=== PATIENT | female | born 1945 | race Caucasian/White ===

== ENCOUNTER 2016-09-12 00:27 | Emergency (ER) | payer MEDICARE, OTHER ==
[~2016-09-12] VITALS: Ht 149.9 cm; Wt 125.2 kg
--- NOTE | 2016-09-12 00:50 | NUR ---
TO BED 05 A 71 YO FEMALE BIBSELF AND REPORTED "MY 2 DAYS AGO AND I FEEL ANXIOUS AND MY WHOLE BODY HURTS." VSS. NO S/S OF ACUTE DISTRESS. AMBULATORY. NONDIAPHORETIC. GOWNED. INITIATED COMFORT MEASURES. AWAITING FOR ER MD CARTAGENA.
[2016-09-12] MEDS ORDERED: ACETAMINOPHEN ES 500 MG TABLET PO ONE (02:00)
--- NOTE | 2016-09-12 02:10 | NUR ---
STARTED A SALINE LOCK ON THE LEFT WRIST G20, BLOOD DRAWN AND SENT TO LAB.
[2016-09-12] MEDS ORDERED: ACETAMINOPHEN ES 500 MG TABLET ONE ×2 (02:12→05:49)
[2016-09-12 02:20] LABS: BASOPHILS # (AUTO) 0.1 /CMM (0.0-0.2); BASOPHILS % (AUTO) 0.9 % (0.0-2.0); EOSINOPHILS # (AUTO) 0.3 /CMM (0.0-0.7); EOSINOPHILS % (AUTO) 2.6 % (0.0-6.0); HEMATOCRIT 41 % (33-45); HEMOGLOBIN 13.6 g/dL (11.5-14.8); LYMPHOCYTES % (AUTO) 35.1 % (20.0-44.0); MEAN CORPUSCULAR HEMOGLOBIN 28 PG (26.0-33.0); MEAN CORPUSCULAR HGB CONC 33 g/dl (31.0-36.0); MEAN CORPUSCULAR VOLUME 83 fL (82-100); MONOCYTES # (AUTO) 0.9 /CMM (0.1-1.30); MONOCYTES % (AUTO) 8.3 % (2.0-12.0); NEUTROPHILS % (AUTO) 53.1 % (43.0-81.0); PLATELET COUNT (AUTO) 195 /CMM (150-450); RDW COEFFICIENT OF VARIATION 15.1 (11.5-15.0); RED BLOOD CELL COUNT(AUTO) 4.93 MIL/uL (4.0-5.2); WHITE BLOOD COUNT (AUTO) 11.3 K/uL (4.3-11.0)
[2016-09-12] MEDS ORDERED: CEFTRIAXONE 1GM BAG (ER ONLY) 1 GM/50 ML PIGGYBACK IV ONE (02:30)
[2016-09-12 02:31] LABS: CARBON DIOXIDE 28 mmol/L (21-32); CHLORIDE 105 mmol/L (98-107); CREATININE 0.9 mg/dL (0.6-1.3); GLUCOSE 127 mg/dL (74-106); POTASSIUM 3.6 mmol/L (3.5-5.1); SODIUM SERUM 141 mmol/L (136-145); UREA NITROGEN, BLOOD 18 mg/dL (7-18)
[2016-09-12 02:34] LABS: INR 0.94 (0.87-1.13)
[2016-09-12 02:37] LABS: ALANINE AMINOTRANSFERASE 21 U/L (12-78); ALBUMIN 3.3 g/dL (3.4-5.0); ALKALINE PHOSPHATASE 90 U/L (46-116); ASPARTATE AMINOTRANSFERASE 10 U/L (15-37); BILIRUBIN,DIRECT 0.1 mg/dL (0.0-0.2); BILIRUBIN,TOTAL 0.4 mg/dL (0.2-1.0)
[2016-09-12 02:39] LABS: TROPONIN I < 0.017 ng/mL (0.00-0.056)
[2016-09-12] MEDS ORDERED: ONDANSETRON HCL/PF 4 MG/2 ML VIAL ONE (03:00)
[2016-09-12] MEDS ORDERED: HYDROMORPHONE 1 MG/1 ML DISP.SYRIN IV ONE (03:00)
[2016-09-12] MEDS ORDERED: HYDROMORPHONE 1 MG/1 ML DISP.SYRIN ONE (03:00)
[2016-09-12] MEDS ORDERED: IV NS 0.9% 250 ML BAG IV ONE (03:00)
[2016-09-12] MEDS ORDERED: IV SET PRIMARY PUMP SET 1 EA INFUS.SET MC ONE (03:00)
[2016-09-12] MEDS ORDERED: CEFTRIAXONE 1GM BAG (ER ONLY) 50 ML IV ONE (03:00)
[2016-09-12] MEDS ORDERED: ONDANSETRON HCL/PF - ER 4 MG/2 ML VIAL IV ONE (03:00)
[2016-09-12] MEDS ORDERED: IV NS 0.9% 250 ML IV ONE (03:01)
[2016-09-12 03:08] LABS: APPEARANCE,URINE CLEAR (CLEAR); BILIRUBIN,URINE NEGATIVE (NEGATIVE); BLOOD, URINE NEGATIVE Ery/uL (NEGATIVE); COLOR,URINE YELLOW (YELLOW); KETONES,URINE NEGATIVE (NEGATIVE); LEUKOCYTE ESTERASE ,URINE NEGATIVE (NEGATIVE); NITRITE, URINE NEGATIVE (NEGATIVE); PH,URINE 5.5 (5.0-8.0); PROTEIN,URINE NEGATIVE (NEGATIVE); UGLUCOSE NEGATIVE (NEGATIVE); UROBILINOGEN,URINE 0.2 EU/dL (0.2)
--- NOTE | 2016-09-12 04:58 | NUR ---
JOHNATHON IS SLEEPING COMFORTABLY AT THIS TIME. VSS.
[2016-09-12] MEDS ORDERED: ACETAMINOPHEN 325 MG TABLET PO ONE (06:00)
--- NOTE | 2016-09-12 06:07 | NUR ---
IIV removed. Catheter intact and site benign. Pressure and 4x4 applied to site. No bleeding noted. Patient discharged to home in stable condition. Written and verbal after care instructions given. Patient verbalizes understanding of instruction. Patient wheeled to waiting area, waiting for grandson to apple picking supervisor. No further complaints.
[2016-09-12 06:08] VITALS: BP 111/64
== END 2016-09-12 06:22 | disposition home or self-care (01) ==
LOC: ER 00:32
DX: N39.0 Urinary tract infection, site not specified (principal); M79.1 Myalgia; F43.20 Adjustment disorder, unspecified; R33.9 Retention of urine, unspecified; R06.02 Shortness of breath; R07.9 Chest pain, unspecified; I25.2 Old myocardial infarction; Z88.0 Allergy status to penicillin; Z88.1 Allergy status to other antibiotic agents; Z88.6 Allergy status to analgesic agent; Z98.51 Tubal ligation status
CPT/HCPCS: 36415; 51701; 71010; 80048; 80076; 81001; 84484; 85025; 85730; 87086; 93005; 96365; 96375; 99285; A4606; J0696; J1170; J2405; J7050; 81000-TC; Z7610

== ENCOUNTER 2021-04-01 12:50 | Inpatient (IN) | payer MEDICARE, OTHER ==
[~2021-04-01] VITALS: Ht 144.8 cm; Wt 117.5 kg
--- NOTE | 2021-04-01 13:06 | NUR ---
BIB RA 99 FROM HOME,ON & OFF CP X 2 DAYS, MORE SEVERE UPON WAKING UP THIS MORNING 10/01, NTG X 1 AND ASA 324 MG GIVEN WITH PARTIAL RELIEF. THE PATIENT IS ALERT AND ORIENTED X4. IN ROOM AIR AND DENIES SOB. RESPIRATION REGULAR AND UNLABORED. ATTACHED TO THE MONITOR. WARM BLANKET PROVIDED FOR COMFORT. WILL CONTINUE TO MONITOR THE PATIENT.
[2021-04-01] MEDS ORDERED: FAMO-131 PO (14:39)
[2021-04-01] MEDS ORDERED: METO25TA6 PO (14:39)
[2021-04-01] MEDS ORDERED: DIAZ5TAB PO (14:39)
[2021-04-01] MEDS ORDERED: TOPI25TA PO (14:39)
[2021-04-01] MEDS ORDERED: TEMA15CA5 PO (14:39)
[2021-04-01] MEDS ORDERED: OMEP20TA5 PO (14:39)
[2021-04-01 14:47] LABS: BASOPHILS # (AUTO) 0.1 K/uL (0.0-0.2); BASOPHILS % (AUTO) 0.5 % (0.0-2.0); EOSINOPHILS % (AUTO) 1.7 % (0.0-6.0); HEMATOCRIT 41 % (33-45); HEMOGLOBIN 13.3 g/dL (11.5-14.8); LYMPHOCYTES # (AUTO) 2.6 K/uL (0.8-4.8); LYMPHOCYTES % (AUTO) 24.2 % (20.0-44.0); MEAN CORPUSCULAR HGB CONC 33 g/dl (31.0-36.0); MEAN CORPUSCULAR VOLUME 86 fL (82-100); MONOCYTES # (AUTO) 0.7 K/uL (0.1-1.30); MONOCYTES % (AUTO) 6.9 % (2.0-12.0); NEUTROPHILS # (AUTO) 7.2 K/uL (1.8-8.9); NEUTROPHILS % (AUTO) 66.7 % (43.0-81.0); PLATELET COUNT (AUTO) 208 K/uL (150-450); RED BLOOD CELL COUNT(AUTO) 4.72 MIL/uL (4.0-5.2); WHITE BLOOD COUNT (AUTO) 10.8 K/uL (4.3-11.0)
--- NOTE | 2021-04-01 14:53 | NUR ---
COVID ANTIGEN SWAB DONE AND SENT TO THE LAB
[2021-04-01 15:09] LABS: CALCIUM, SERUM 9.2 mg/dL (8.5-10.1); CARBON DIOXIDE 27 mmol/L (21-32); CHLORIDE 107 mmol/L (98-107); CREATININE 0.7 mg/dL (0.6-1.3); GLUCOSE 140 mg/dL (74-106); POTASSIUM 3.6 mmol/L (3.5-5.1); SODIUM SERUM 140 mmol/L (136-145); UREA NITROGEN, BLOOD 18 mg/dL (7-18)
[2021-04-01] MEDS ORDERED: AZITHROMYCIN 250 MG TABLET PO ONE (17:00)
[2021-04-01] MEDS ORDERED: AZITHROMYCIN 250 MG TABLET ONE (17:02)
--- NOTE | 2021-04-01 18:28 | NUR ---
ROOM 204
[2021-04-01] MEDS ORDERED: MAGNESIUM HYDROXIDE 30 ML UDC PO PRN (18:30)
[2021-04-01] MEDS ORDERED: MAG HYDROX/AL HYDROX/SIMETH 30 ML UDC PO PRN (18:30)
[2021-04-01] MEDS ORDERED: ONDANSETRON HCL/PF 4 MG/2 ML VIAL IVP PRN (18:30)
[2021-04-01] MEDS ORDERED: Z GUARD REMEDY 4 OZ OINT TP PRN (18:30)
[2021-04-01] MEDS ORDERED: ZOLPIDEM TARTRATE 5 MG TABLET PO PRN (18:30)
[2021-04-01] MEDS ORDERED: AZITHROMYCIN 500 MG in IV D5W 250 ML IV SCH (18:30)
[2021-04-01] MEDS ORDERED: ENOXAPARIN SODIUM 40 MG/0.4 ML DISP.SYRIN SQ ONE (19:09)
[2021-04-01] MEDS: ENOXAPARIN SODIUM 40 MG/0.4 ML DISP.SYRIN SQ SCH (19:12)
--- NOTE | 2021-04-01 19:23 | NUR ---
REPORT GIVEN TO NURSE VAUGHN FOR AWA
--- NOTE | 2021-04-01 20:17 | NUR ---
REPORT GIVEN TO ZA HITCHCOCK
[2021-04-01 22:00] VITALS: BP 135/86
--- NOTE | 2021-04-01 22:08 | NUR ---
PT TRANSFERED PER ACLS PROTOCOL
--- NOTE | 2021-04-01 22:09 | NUR ---
NM: LUNG V/Q WAS COMPLETED. TECH:RB
--- NOTE | 2021-04-01 23:10 | NUR ---
RN NOTES RECEIVED PATIENT FROM ER WITH DX. OF CHEST PAIN, A/OX4, OBESE, A-FIB ON TELE MONITOR HR-93, ADMISSION INSTRUCTION WAS GIVEN, SKIN ASSESSMENT DONE, CALL LIGHT WITHIN REACH, [id number], WILL CONTINUE TO MONITOR
--- NOTE | 2021-04-01 23:20 | NUR ---
RN NOTES PATIENT COMPLAINED OF TERRIBLE HEADACHE, GOT AN ORDER FROM ELAINE DINH=-ILLUMINATOR, MORPHINE 2 MG IV ONCE, ORDER NOTED AND CARRIED OUT
[2021-04-01] MEDS ORDERED: MORPHINE SULFATE INJ 2 MG/ML DISP.SYRIN IV PRN (23:30)
--- NOTE | 2021-04-02 01:26 | NUR ---
RN NOTES PATIENT IS A HARDSTICK, GOT AN ORDER OF MIDLINE INSERTION FROM ELAINE SNOW, ORDER NOTED AND CARRIED OUT
[2021-04-02 04:00] VITALS: BP 125/71
--- NOTE | 2021-04-02 06:49 | NUR ---
RN NOTES SLEEPING BUT AROUSABLE, NOT IN DISTRESS, NO PAIN NOTED, MORNING CARE RENDERED, CALL LIGHT WITHIN REACH, [id number], PT. NEEDS ATTENDED
--- NOTE | 2021-04-02 07:26 | NUR ---
RN OPENING NOTES RECEIVED PATIENT IN BED. PATIENT IS A/O X4. PATIENT IS BREATHING EVENLY AND NONLABORED ON ROOM AIR. NO SIGNS OF DISTRESS NOTED. PATIENT COMPLAINS OF HEADACHE WILL GIVE PRN PAIN MEDICATION, VITALS STABLE. PATIENT IS ON TELE MONITORING SHOWING AFIB. PATIENT HAS IV ACCESS NOTED ON LEFT HAND # 20 PATENT AND INTACT. SAFETY MEASURES IN PLACE BED LOW LOCKED AND CALL LIGHT WITHIN REACH. WILL CONTINUE TO MONITOR
[2021-04-02] MEDS ORDERED: PANTOPRAZOLE 40 MG TABLET.DR PO SCH (07:30)
[2021-04-02] MEDS: ACETAMINOPHEN 325 MG TABLET PO PRN (07:37)
[2021-04-02 07:50] VITALS: BP 136/87
[2021-04-02 08:19] LABS: BASOPHILS % (AUTO) 0.5 % (0.0-2.0); EOSINOPHILS % (AUTO) 2.1 % (0.0-6.0); HEMATOCRIT 39 % (33-45); HEMOGLOBIN 12.6 g/dL (11.5-14.8); LYMPHOCYTES # (AUTO) 2.9 K/uL (0.8-4.8); LYMPHOCYTES % (AUTO) 38.2 % (20.0-44.0); MEAN CORPUSCULAR HGB CONC 33 g/dl (31.0-36.0); MEAN CORPUSCULAR VOLUME 86 fL (82-100); MONOCYTES # (AUTO) 0.7 K/uL (0.1-1.30); MONOCYTES % (AUTO) 8.8 % (2.0-12.0); NEUTROPHILS # (AUTO) 3.9 K/uL (1.8-8.9); NEUTROPHILS % (AUTO) 50.4 % (43.0-81.0); PLATELET COUNT (AUTO) 199 K/uL (150-450); RED BLOOD CELL COUNT(AUTO) 4.49 MIL/uL (4.0-5.2); WHITE BLOOD COUNT (AUTO) 7.7 K/uL (4.3-11.0)
[2021-04-02 08:23] LABS: CALCIUM, SERUM 8.7 mg/dL (8.5-10.1); CREATININE 0.6 mg/dL (0.6-1.3); MAGNESIUM 2.2 mg/dL (1.8-2.4); PHOSPHORUS 4.2 mg/dL (2.5-4.9)
[2021-04-02 08:59] LABS: THYROID STIMULATING HORMONE 1.542 uIU/mL (0.358-3.74)
[2021-04-02] MEDS: HYDROCODONE/APAP 10/325MG TABLET PO PRN ×3 (11:08→20:59)
[2021-04-02] MEDS ORDERED: HYDROCODONE/APAP 5/325MG TABLET PO PRN (11:30)
[2021-04-02] MEDS: LEVOFLOXACIN 500 MG /D5W 100ML 100 ML IV SCH (11:53)
--- NOTE | 2021-04-02 12:12 | NUR ---
RN NOTE MIDLINE INSERTION ON LEFT UPPER ARM # 18 GAUGE PATENT AND INTACT.
[2021-04-02 13:17] VITALS: BP 112/76
[2021-04-02] MEDS: PANTOPRAZOLE 40 MG TABLET.DR PO SCH ×2 (14:42→20:59)
--- NOTE | 2021-04-02 14:45 | NUR ---
RN NOTE PATIENT COMPLAINED OF CHEST PAIN NONRADIATING. MD NOTIFIED WHO GAVE NEW ORDER FOR PROTONIX Q12HRS AND TO MONITOR.
[2021-04-02 15:44] VITALS: BP 123/84
[2021-04-02] MEDS ORDERED: diphenhydrAMINE HCL 50 MG/ML VIAL IV ONE (17:00)
[2021-04-02] MEDS ORDERED: TOPIRAMATE 25 MG TABLET PO SCH (17:00)
[2021-04-02] MEDS: DIAZEPAM 5 MG TABLET PO SCH (17:53)
[2021-04-02] MEDS: METOPROLOL TARTRATE 25 MG TABLET PO SCH (17:53)
[2021-04-02] MEDS: ENOXAPARIN SODIUM 40 MG/0.4 ML DISP.SYRIN SQ SCH ×2 (17:53→17:56)
--- NOTE | 2021-04-02 18:29 | NUR ---
RN CLOSING NOTES PATIENT IN BED. PATIENT IS A/O X4. PATIENT IS BREATHING EVENLY AND NONLABORED ON ROOM AIR. NO SIGNS OF DISTRESS NOTED. PATIENT DENIES PAIN OR DISCOMFORT AT THIS TIME, VITALS STABLE THROUGHOUT SHIFT. PATIENT IS ON TELE MONITORING SHOWING AFIB. PATIENT HAS IV ACCESS NOTED ON LEFT HAND # 20 PATENT AND INTACT. ALL MEDICATIONS GIVEN ORDERED. PATIENT KEPT CLEAN AND DRY. SAFETY MEASURES IN PLACE BED LOW LOCKED AND CALL LIGHT WITHIN REACH. WILL ENDORSE TO ONCOMING SHIFT
--- NOTE | 2021-04-02 19:36 | NUR ---
BLOCK MACHINE OPERATOR OPENING NOTE PATIENT RESTING IN BED. PATIENT IS A/O X4. PATIENT IS BREATHING EVENLY LABORED WITH SOB NOTED ON 10 LPM VIA SIMPLE FACEMASK. NO COMPLAINTS OF PAIN AT THIS TIME. PATIENT PLACED ON TELE MONITORING SHOWING SINUS TACHYCARDIA. FC IN PLACE DRAINING CLEAR YELLOW URINE ABDOMEN SOFT NONTENDER. SKIN C/D/I, PATIENT NOTED WITH IV ACCESS TO LAC # 18 GAUGE PATENT AND INTACT. SAFETY MEASURES IN PLACE BED LOW LOCKED AND CALL LIGHT WITHIN REACH. WILL ENDORSE TO DAY SHIFT NURSE.
[2021-04-02 20:00] VITALS: BP 103/73
--- NOTE | 2021-04-02 21:04 | NUR ---
INSTRUMENT SPECIALIST NOTES PRN NORCO 10-325 GIVEN FOR GENERALIZED PAIN. TOLERATED WELL. WILL CONTINUE TO MONITOR.
[2021-04-02] MEDS ORDERED: TEMAZEPAM 15 MG CAPSULE PO SCH (22:00)
[2021-04-03] VITALS: BP 111/68
[2021-04-03 04:00] VITALS: BP 112/59
[2021-04-03] MEDS: HYDROCODONE/APAP 10/325MG TABLET PO PRN ×3 (04:49→20:01)
--- NOTE | 2021-04-03 04:52 | NUR ---
SALES AGENT BUSINESS SERVICES NOTES PT HAVING PAIN PRN NORCO 10-325 GIVEN AND TOLERATED WELL.
--- NOTE | 2021-04-03 06:55 | NUR ---
LATHE SET UP PERSON CLOSING NOTE PATIENT RESTING IN BED. PATIENT IS A/O X4. PATIENT IS BREATHING EVENLY LABORED WITH SOB NOTED ON 10 LPM VIA SIMPLE FACEMASK. NO COMPLAINTS OF PAIN AT THIS TIME. PATIENT PLACED ON TELE MONITORING SHOWING SINUS TACHYCARDIA. FC IN PLACE DRAINING CLEAR YELLOW URINE ABDOMEN SOFT NONTENDER. SKIN C/D/I, PATIENT NOTED WITH IV ACCESS TO LAC # 18 GAUGE PATENT AND INTACT. SAFETY MEASURES IN PLACE BED LOW LOCKED AND CALL LIGHT WITHIN REACH. WILL ENDORSE TO DAY SHIFT NURSE.
[2021-04-03 07:04] LABS: BASOPHILS % (AUTO) 0.5 % (0.0-2.0); HEMATOCRIT 38 % (33-45); HEMOGLOBIN 12.3 g/dL (11.5-14.8); LYMPHOCYTES # (AUTO) 3.2 K/uL (0.8-4.8); LYMPHOCYTES % (AUTO) 47.5 % (20.0-44.0); MEAN CORPUSCULAR HGB CONC 32 g/dl (31.0-36.0); MEAN CORPUSCULAR VOLUME 87 fL (82-100); MONOCYTES # (AUTO) 0.7 K/uL (0.1-1.30); MONOCYTES % (AUTO) 10.8 % (2.0-12.0); NEUTROPHILS # (AUTO) 2.6 K/uL (1.8-8.9); NEUTROPHILS % (AUTO) 38.2 % (43.0-81.0); PLATELET COUNT (AUTO) 180 K/uL (150-450); RED BLOOD CELL COUNT(AUTO) 4.38 MIL/uL (4.0-5.2); WHITE BLOOD COUNT (AUTO) 6.7 K/uL (4.3-11.0)
--- NOTE | 2021-04-03 07:23 | NUR ---
RN OPENING NOTES RECEIVED PATIENT IN BED. PATIENT IS A/O X4. PATIENT IS BREATHING EVENLY AND NONLABORED ON ROOM AIR. NO SIGNS OF DISTRESS NOTED. PATIENT DENIES PAIN OR DISCOMFORT AT THIS TIME. PATIENT IS ON TELE MONITORING SHOWING AFIB. PATIENT HAS IV ACCESS NOTED ON LEFT UPPER ARM MIDLINE # 18 PATENT AND INTACT. SAFETY MEASURES IN PLACE BED LOW LOCKED AND CALL LIGHT WITHIN REACH. WILL CONTINUE TO MONITOR
[2021-04-03 08:00] VITALS: BP 107/59
[2021-04-03 08:02] LABS: CALCIUM, SERUM 8.4 mg/dL (8.5-10.1); CREATININE 0.7 mg/dL (0.6-1.3); MAGNESIUM 2.2 mg/dL (1.8-2.4); PHOSPHORUS 4.8 mg/dL (2.5-4.9); POTASSIUM 4.3 mmol/L (3.5-5.1)
[2021-04-03] MEDS: METOPROLOL TARTRATE 25 MG TABLET PO SCH ×2 (08:10→16:10)
[2021-04-03] MEDS: DIAZEPAM 5 MG TABLET PO SCH ×3 (08:10→16:10)
[2021-04-03] MEDS: PANTOPRAZOLE 40 MG TABLET.DR PO SCH ×2 (08:10→20:34)
[2021-04-03] MEDS ORDERED: diphenhydrAMINE HCL 50 MG/ML VIAL IV ONE (09:00)
--- NOTE | 2021-04-03 09:30 | NUR ---
WOUND CARE CONSULT: REVIEWED CHART, NURSING DOCUMENTATION AND PHOTO WHICH INDICATES REDNESS/RASH TO INNER BUTTOCKS, PRESENT ON ADMISSION. RECOMMENDATIONS MADE FOR SKIN CARE AND PROTECTION. DISCUSSED WITH NURSING STAFF. MDIN AGREEMENT WITH PLAN OF CARE.
--- NOTE | 2021-04-03 10:11 | NUR ---
RN NOTE PATIENT NOTED WITH GENERALIZED REDNESS AND ITCHING. VITALS STABLE, PATIENT STATED IT MAY BE FROM THE SOAP, NOTIFIED GAVE NEW ORDER FOR BENADRYL 25MG Q6HRS PRN
[2021-04-03] MEDS ORDERED: IV NS 0.9% 250 ML IV ONE (10:41)
[2021-04-03] MEDS ORDERED: NITROGLYCERIN 0.4 MG/TAB BOTTLE ONE (10:41)
[2021-04-03] MEDS ORDERED: IOHEXOL-350 100 ML VIAL IV ONE (10:41)
[2021-04-03] MEDS ORDERED: CT SWABBABLE VALVE TRANS SET 1 EA INFUS.SET MC ONE (10:41)
[2021-04-03] MEDS ORDERED: METOPROLOL TARTRATE INJ 5 MG/5 ML AMPUL ONE (10:41)
[2021-04-03] MEDS: METOPROLOL TARTRATE INJ 5 MG/5 ML AMPUL IVP PRN ×2 (10:50→10:55)
[2021-04-03] MEDS ORDERED: NITROGLYCERIN 0.4 MG/TAB BOTTLE SL ONE (11:00)
[2021-04-03] MEDS: LEVOFLOXACIN 500 MG /D5W 100ML 100 ML IV SCH (11:19)
[2021-04-03] MEDS: CLOTRIMAZOLE 1% 15 GM TUBE TP SCH ×2 (11:20→16:10)
[2021-04-03 12:00] VITALS: BP 112/79
[2021-04-03 12:22] LABS: BILIRUBIN,URINE NEGATIVE (NEGATIVE); COLOR,URINE OTHER (YELLOW); LEUKOCYTE ESTERASE ,URINE LARGE (NEGATIVE); NITRITE, URINE NEGATIVE (NEGATIVE); PROTEIN,URINE NEGATIVE (NEGATIVE); UGLUCOSE NEGATIVE (NEGATIVE); UROBILINOGEN,URINE 0.2 EU/dL (0.2)
[2021-04-03 12:37] LABS: BACTERIA,URINE Moderate /HPF (None Seen); RBC,URINE 0-2 /HPF (0-2); SQUAMOUS EPITHELIAL CELL,UR Few /HPF (None Seen); WBC,URINE 81-100 /HPF (0-3)
[2021-04-03 16:00] VITALS: BP 95/52
[2021-04-03] MEDS: diphenhydrAMINE HCL 50 MG/ML VIAL IV PRN ×2 (16:10→21:58)
[2021-04-03] MEDS: ENOXAPARIN SODIUM 40 MG/0.4 ML DISP.SYRIN SQ SCH (17:51)
--- NOTE | 2021-04-03 18:18 | NUR ---
RN CLOSING NOTES PATIENT IN BED. PATIENT IS A/O X4. PATIENT IS BREATHING EVENLY AND NONLABORED ON ROOM AIR. NO SIGNS OF DISTRESS NOTED. PATIENT DENIES PAIN OR DISCOMFORT AT THIS TIME, VITALS STABLE THROUGHOUT SHIFT. PATIENT IS ON TELE MONITORING SHOWING AFIB. PATIENT HAS IV ACCESS NOTED ON LEFT UPPER ARM MIDLINE PATENT AND INTACT. ALL MEDICATIONS GIVEN ORDERED. PATIENT KEPT CLEAN AND DRY. SAFETY MEASURES IN PLACE BED LOW LOCKED AND CALL LIGHT WITHIN REACH. WILL ENDORSE TO ONCOMING SHIFT
--- NOTE | 2021-04-03 19:40 | NUR ---
company laundry worker opening notes Pt is sitting in bed comfortably eating dinner. Pt is alert and orientedX4. Respiration is normal in room air. No SOB. No S/S of distress noted. BRADLY midline # 18 is clean, intact and SL.Tele monitor showed afib. Safety precautions is maintained. Bed at low position, brakes locked, side rails upX3, hob elevated and call light is within reach. Will continue to monitor.
[2021-04-03 20:00] VITALS: BP 102/48
--- NOTE | 2021-04-03 20:01 | NUR ---
film casting operator notes Pt is complaining of generalized pain and requesting pain meds. administered norco 10 as ordered for pain. VS is stable. Safety precautions is maintained. Will continue to monitor.
--- NOTE | 2021-04-03 20:34 | NUR ---
RN notes Unable to scan protonix tab. inserted manual barcode.
--- NOTE | 2021-04-03 21:58 | NUR ---
RN notes Pt is complaining of itchyness and requesting benadryl. Pt stated " I think from protonix." Administered benadryl inj/25mg as ordered for itchyness. Also put protonix on Pt's allergy lists. Will continue to monitor.
[2021-04-04] VITALS: BP 100/65
--- NOTE | 2021-04-04 | NUR ---
RN notes Pt is sitting in bed comfortably eating snacks. No S/S of distress noted. Itchyness is resolved.
[2021-04-04 04:00] VITALS: BP 102/57
[2021-04-04] MEDS: HYDROCODONE/APAP 10/325MG TABLET PO PRN (05:45)
--- NOTE | 2021-04-04 06:30 | NUR ---
paper goods machine operator closing notes Pt is resting in bed comfortably. Pt is alert and orientedX4. Respiration is normal in room air. No SOB. No S/S of distress noted. BRADLY midline # 18 is clean, intact and SL. Tele monitor showed afib. Routine meds were given as ordered. Safety precautions is maintained. Bed at low position, brakes locked, side rails upX3, hob elevated and call light is within reach. Will endorse to am nurse for AWA.
[2021-04-04 07:47] LABS: BASOPHILS % (AUTO) 0.5 % (0.0-2.0); HEMATOCRIT 38 % (33-45); HEMOGLOBIN 12.4 g/dL (11.5-14.8); LYMPHOCYTES % (AUTO) 37.8 % (20.0-44.0); MEAN CORPUSCULAR HGB CONC 33 g/dl (31.0-36.0); MEAN CORPUSCULAR VOLUME 86 fL (82-100); MONOCYTES # (AUTO) 0.9 K/uL (0.1-1.30); MONOCYTES % (AUTO) 11.4 % (2.0-12.0); NEUTROPHILS # (AUTO) 3.6 K/uL (1.8-8.9); NEUTROPHILS % (AUTO) 46.3 % (43.0-81.0); PLATELET COUNT (AUTO) 189 K/uL (150-450); RED BLOOD CELL COUNT(AUTO) 4.38 MIL/uL (4.0-5.2); WHITE BLOOD COUNT (AUTO) 7.8 K/uL (4.3-11.0)
[2021-04-04 08:00] VITALS: BP 141/88
--- NOTE | 2021-04-04 08:06 | NUR ---
RN Note Patient received in bed AO x 4, able to responds all stimuli. No distress observed. Respiratory even and unlabored on room air. Skin is warm to touch, keep clean/dry. Call light within reach, kept elevated HOB for ensure airway and lower bed position for safety. Will continue to monitor.
[2021-04-04 08:52] LABS: CALCIUM, SERUM 8.2 mg/dL (8.5-10.1); CREATININE 0.9 mg/dL (0.6-1.3); PHOSPHORUS 5.1 mg/dL (2.5-4.9); POTASSIUM 4.3 mmol/L (3.5-5.1)
[2021-04-04] MEDS: CLOTRIMAZOLE 1% 15 GM TUBE TP SCH ×2 (09:00→17:25)
[2021-04-04] MEDS: METOPROLOL TARTRATE 25 MG TABLET PO SCH ×2 (09:00→17:00)
[2021-04-04 09:22] LABS: CHOLESTEROL 162 mg/dL (<200); HDL CHOLESTEROL 47 mg/dL (40-60); LDL 93 mg/dL (0-99); TRIGLYCERIDES 131 mg/dL (30-150)
[2021-04-04] MEDS: CIPROFLOXACIN IV RTU 400 MG in PREMIX 1 EA IV SCH ×2 (09:51→20:36)
[2021-04-04] MEDS: DIAZEPAM 5 MG TABLET PO SCH ×3 (09:53→17:16)
[2021-04-04] MEDS: diphenhydrAMINE HCL 50 MG/ML VIAL IV PRN (11:58)
[2021-04-04] MEDS: FAMOTIDINE (20 MG) 20 MG TABLET PO SCH (17:16)
[2021-04-04] MEDS: ENOXAPARIN SODIUM 40 MG/0.4 ML DISP.SYRIN SQ SCH (18:22)
--- NOTE | 2021-04-04 18:30 | NUR ---
RN Closing Note Patient in bed remains AO x 4. No distress observed, respiratory even and unlabored on room air. Skin is warm to touch, keep clean/dry. Kept elevated HOB for ensure airway and lower position of the bed for safety. Call light within reach, all needs met. will endorse power and recovery shift engineer.
[2021-04-04 22:00] VITALS: BP 95/54
[2021-04-05] VITALS: BP 100/67
[2021-04-05 04:00] VITALS: BP 104/60
--- NOTE | 2021-04-05 07:36 | NUR ---
DRIVER EDUCATION ROAD INSTRUCTOR OPENING NOTE RECEIVED PATIENT RESTING IN BED. PATIENT IS A/O X4 ON ROOM AIR . NO COMPLAINTS OF SOB. NO COMPLAINTS OF PAIN AT THIS TIME. IV ACCESS TO LAC # 18 GAUGE PATENT AND INTACT. SAFETY MEASURES IN PLACE BED LOW LOCKED AND CALL LIGHT WITHIN REACH
[2021-04-05] MEDS ORDERED: DOXY100T2 PO (09:00)
[2021-04-05] MEDS ORDERED: HYDR-3980 PO (09:00)
[2021-04-05] MEDS ORDERED: ENOX40DI SQ (09:00)
[2021-04-05] MEDS ORDERED: DOXYCYCLINE HYCLATE (100 MG) 100 MG TABLET PO SCH (09:00)
[2021-04-05] MEDS: FAMOTIDINE (20 MG) 20 MG TABLET PO SCH (09:25)
[2021-04-05] MEDS: METOPROLOL TARTRATE 25 MG TABLET PO SCH ×2 (09:26→16:22)
[2021-04-05] MEDS: DIAZEPAM 5 MG TABLET PO SCH ×3 (09:26→16:22)
[2021-04-05] MEDS: CLOTRIMAZOLE 1% 15 GM TUBE TP SCH ×2 (09:27→16:25)
[2021-04-05] MEDS: HYDROCODONE/APAP 10/325MG TABLET PO PRN (13:08)
[2021-04-05 16:00] VITALS: BP 129/73
[2021-04-05 16:22] VITALS: BP 129/73
[2021-04-05] MEDS: ACETAMINOPHEN 325 MG TABLET PO PRN (16:24)
--- NOTE | 2021-04-05 18:30 | NUR ---
RN NOTE PATIENT TAKEN BY 2 PUPIL PERSONNEL WORKER IN STABLE CONDITION
== END 2021-04-05 22:29 | disposition home or self-care (01) | DRG 303 ==
LOC: ER 12:52 → TELE2 18:55
PROVIDERS: ADMIT Student in an Organized Health Care Education/Training Program; ATTEND Internal Medicine
DX: I25.110 Atherosclerotic heart disease of native coronary artery with unstable angina pectoris (principal); N39.0 Urinary tract infection, site not specified; Z68.43 Body mass index [BMI] 50.0-59.9, adult; I10 Essential (primary) hypertension; I48.91 Unspecified atrial fibrillation; Z20.822 Contact with and (suspected) exposure to COVID-19; I25.2 Old myocardial infarction; M19.90 Unspecified osteoarthritis, unspecified site; M85.80 Other specified disorders of bone density and structure, unspecified site; Z86.16 Personal history of COVID-19; Z87.891 Personal history of nicotine dependence; G62.9 Polyneuropathy, unspecified; Z87.440 Personal history of urinary (tract) infections; B96.20 Unspecified Escherichia coli [E. coli] as the cause of diseases classified elsewhere; R53.1 Weakness
CPT/HCPCS: 36415; 70450-TC; 71045-TC; 75574; 78582; 80048-TC; 80061-TC; 81001; 83605-TC; 83735-TC; 83880; 84100-TC; 84443-TC; 84484-TC; 85025-TC; 85378-TC; 87040-TC; 87081-TC; 87086-TC; 87186-TC; 93307-TC; 93970-TC; A4216; A9540; A9567; C9803; G0378; J0456; J0744; J1200; J1650; J1956; J2270; J3490; J7050; J7060; Q9967; U0003

== ENCOUNTER 2021-05-04 01:15 | Inpatient (IN) | payer MEDICARE, MEDICAID ==
[~2021-05-04] VITALS: Ht 149.9 cm; Wt 117.9 kg
[~2021-05-04 01:15] MED LIST: DIAZ5TAB PO; FAMO-131 PO; METO25TA6 PO; OMEP20TA5 PO; TEMA15CA5 PO; TOPI25TA PO
[2021-05-04 01:58] LABS: BASOPHILS % (AUTO) 0.6 % (0.0-2.0); EOSINOPHILS % (AUTO) 2.5 % (0.0-6.0); HEMATOCRIT 40 % (33-45); HEMOGLOBIN 12.9 g/dL (11.5-14.8); LYMPHOCYTES # (AUTO) 2.7 K/uL (0.8-4.8); LYMPHOCYTES % (AUTO) 33.1 % (20.0-44.0); MEAN CORPUSCULAR HGB CONC 33 g/dl (31.0-36.0); MEAN CORPUSCULAR VOLUME 85 fL (82-100); MONOCYTES # (AUTO) 0.8 K/uL (0.1-1.30); MONOCYTES % (AUTO) 9.8 % (2.0-12.0); NEUTROPHILS # (AUTO) 4.4 K/uL (1.8-8.9); PLATELET COUNT (AUTO) 198 K/uL (150-450); RED BLOOD CELL COUNT(AUTO) 4.65 MIL/uL (4.0-5.2); WHITE BLOOD COUNT (AUTO) 8.2 K/uL (4.3-11.0)
[2021-05-04] MEDS ORDERED: ONDANSETRON HCL/PF 4 MG/2 ML VIAL IV ONE (02:00)
[2021-05-04] MEDS ORDERED: MORPHINE SULFATE INJ 2 MG/ML DISP.SYRIN IV ONE (02:00)
[2021-05-04] MEDS ORDERED: ONDANSETRON HCL/PF 4 MG/2 ML VIAL ONE (02:09)
[2021-05-04] MEDS ORDERED: MORPHINE SULFATE INJ 2 MG/ML DISP.SYRIN ONE (02:10)
[2021-05-04 02:12] LABS: CARBON DIOXIDE 28 mmol/L (21-32); CHLORIDE 105 mmol/L (98-107); CREATININE 0.7 mg/dL (0.6-1.3); GLUCOSE 98 mg/dL (74-106); POTASSIUM 3.8 mmol/L (3.5-5.1); SODIUM SERUM 138 mmol/L (136-145); UREA NITROGEN, BLOOD 8 mg/dL (7-18)
[2021-05-04 02:26] LABS: ALANINE AMINOTRANSFERASE 9 U/L (12-78); ALBUMIN 3.1 g/dL (3.4-5.0); ALKALINE PHOSPHATASE 73 U/L (46-116); ASPARTATE AMINOTRANSFERASE 12 U/L (15-37); BILIRUBIN,DIRECT 0.1 mg/dL (0.0-0.2); BILIRUBIN,TOTAL 0.4 mg/dL (0.2-1.0); TOTAL PROTEIN, SERUM 7.1 g/dL (6.4-8.2)
[2021-05-04] MEDS ORDERED: ENOXAPARIN SODIUM 40 MG/0.4 ML DISP.SYRIN SQ SCH (04:00)
[2021-05-04] MEDS ORDERED: ONDANSETRON HCL/PF 4 MG/2 ML VIAL IVP PRN (04:00)
[2021-05-04] MEDS ORDERED: ENOXAPARIN SODIUM 40 MG/0.4 ML DISP.SYRIN SQ ONE ×2 (04:22→21:00)
[2021-05-04] MEDS ORDERED: Medication Not On Formulary EA (Omeprazole 20 MG) PO SCH (09:00)
[2021-05-04] MEDS ORDERED: TOPIRAMATE 25 MG TABLET PO SCH (09:00)
[2021-05-04] MEDS: DIAZEPAM 5 MG TABLET PO SCH ×3 (10:24→17:23)
[2021-05-04] MEDS: METOPROLOL TARTRATE 25 MG TABLET PO SCH ×2 (10:24→17:00)
[2021-05-04] MEDS: FAMOTIDINE (20 MG) 20 MG TABLET PO SCH (10:25)
[2021-05-04] MEDS: ACETAMINOPHEN 325 MG TABLET PO PRN (10:25)
[2021-05-04 11:00] VITALS: BP 119/61
[2021-05-04] MEDS ORDERED: IVERMECTIN 3 MG TABLET PO ONE (11:00)
[2021-05-04] MEDS ORDERED: PERMETHRIN 5% CRM 60 GM TUBE TP ONE (11:00)
[2021-05-04] MEDS: HYDROCODONE/APAP 5/325MG TABLET PO PRN ×2 (12:05→17:24)
[2021-05-04] MEDS: CEFTRIAXONE 1 G in IV D5W 50 ML IV SCH (12:11)
[2021-05-04 16:00] VITALS: BP 92/50
[2021-05-04 20:00] VITALS: BP_SYST 144; BP_SYST 94; BP_DIAS 53; BP_DIAS 68
[2021-05-04] MEDS: TEMAZEPAM 15 MG CAPSULE PO SCH (22:26)
[2021-05-05] VITALS: BP 106/63
[2021-05-05] MEDS: ACETAMINOPHEN 325 MG TABLET PO PRN (00:12)
[2021-05-05] MEDS: HYDROCODONE/APAP 5/325MG TABLET PO PRN ×4 (00:52→21:45)
[2021-05-05 05:00] VITALS: BP_SYST 101; BP_DIAS 54; BP_DIAS 64
[2021-05-05 06:55] LABS: BASOPHILS % (AUTO) 0.7 % (0.0-2.0); EOSINOPHILS % (AUTO) 4.5 % (0.0-6.0); HEMATOCRIT 37 % (33-45); HEMOGLOBIN 11.9 g/dL (11.5-14.8); LYMPHOCYTES # (AUTO) 3.1 K/uL (0.8-4.8); LYMPHOCYTES % (AUTO) 46.1 % (20.0-44.0); MEAN CORPUSCULAR HGB CONC 32 g/dl (31.0-36.0); MEAN CORPUSCULAR VOLUME 85 fL (82-100); MONOCYTES # (AUTO) 0.7 K/uL (0.1-1.30); MONOCYTES % (AUTO) 10.3 % (2.0-12.0); NEUTROPHILS # (AUTO) 2.5 K/uL (1.8-8.9); NEUTROPHILS % (AUTO) 38.4 % (43.0-81.0); PLATELET COUNT (AUTO) 188 K/uL (150-450); RED BLOOD CELL COUNT(AUTO) 4.33 MIL/uL (4.0-5.2); WHITE BLOOD COUNT (AUTO) 6.6 K/uL (4.3-11.0)
[2021-05-05 07:26] LABS: ALBUMIN 2.8 g/dL (3.4-5.0); BILIRUBIN,TOTAL 0.3 mg/dL (0.2-1.0); CALCIUM, SERUM 8.5 mg/dL (8.5-10.1); CREATININE 0.8 mg/dL (0.6-1.3); PHOSPHORUS 4.8 mg/dL (2.5-4.9); TOTAL PROTEIN, SERUM 6.4 g/dL (6.4-8.2)
[2021-05-05 08:00] VITALS: BP 114/64
[2021-05-05] MEDS: DIAZEPAM 5 MG TABLET PO SCH ×3 (08:51→17:21)
[2021-05-05] MEDS: METOPROLOL TARTRATE 25 MG TABLET PO SCH ×2 (08:52→17:22)
[2021-05-05] MEDS: FAMOTIDINE (20 MG) 20 MG TABLET PO SCH (08:52)
[2021-05-05] MEDS: ENOXAPARIN SODIUM 40 MG/0.4 ML DISP.SYRIN SQ SCH (08:53)
[2021-05-05] MEDS: DOCUSATE SODIUM 250 MG CAPSULE PO SCH ×2 (12:16→17:21)
[2021-05-05] MEDS: CEFTRIAXONE 1 G in IV D5W 50 ML IV SCH (12:16)
[2021-05-05] MEDS: ISOSORBIDE MONONITRATE (30MG) 30 MG TAB.SR.24H PO SCH (12:18)
[2021-05-05 16:00] VITALS: BP 96/60
[2021-05-05] MEDS: TEMAZEPAM 15 MG CAPSULE PO SCH (22:00)
[2021-05-05] MEDS: diphenhydrAMINE HCL 50 MG/ML VIAL IV PRN (22:20)
[2021-05-06] MEDS: HYDROCODONE/APAP 5/325MG TABLET PO PRN ×3 (02:48→23:56)
[2021-05-06] MEDS: diphenhydrAMINE HCL 50 MG/ML VIAL IV PRN ×3 (04:59→20:35)
[2021-05-06 08:00] VITALS: BP 108/51
[2021-05-06] MEDS: DIAZEPAM 5 MG TABLET PO SCH ×3 (08:42→16:50)
[2021-05-06] MEDS: DOCUSATE SODIUM 250 MG CAPSULE PO SCH ×2 (08:42→16:36)
[2021-05-06] MEDS: FAMOTIDINE (20 MG) 20 MG TABLET PO SCH (08:42)
[2021-05-06] MEDS: SERTRALINE HCL 25 MG TABLET PO SCH (08:42)
[2021-05-06] MEDS: ISOSORBIDE MONONITRATE (30MG) 30 MG TAB.SR.24H PO SCH (08:43)
[2021-05-06] MEDS: ENOXAPARIN SODIUM 40 MG/0.4 ML DISP.SYRIN SQ SCH (08:43)
[2021-05-06] MEDS: METOPROLOL TARTRATE 25 MG TABLET PO SCH ×2 (08:44→16:37)
[2021-05-06 12:00] VITALS: BP 127/79
[2021-05-06] MEDS ORDERED: DIGOXIN 0.125 MG TABLET PO SCH (15:00)
[2021-05-06] MEDS ORDERED: DIGOXIN INJ 0.5 MG/2 ML AMPUL IV ONE (15:00)
[2021-05-06 16:00] VITALS: BP 105/58
[2021-05-06] MEDS: APIXABAN 5 MG TABLET PO SCH (16:41)
[2021-05-06 20:00] VITALS: BP_SYST 110; BP_SYST 177; BP_DIAS 66; BP_DIAS 85
[2021-05-06] MEDS: TEMAZEPAM 15 MG CAPSULE PO SCH (22:13)
[2021-05-06 23:03] VITALS: BP 162/92
[2021-05-06 23:04] VITALS: BP 159/87
[2021-05-07] VITALS: BP 108/62
[2021-05-07 04:00] VITALS: BP 102/62
[2021-05-07] MEDS: diphenhydrAMINE HCL 50 MG/ML VIAL IV PRN ×3 (04:32→22:59)
[2021-05-07 08:00] VITALS: BP 126/70
[2021-05-07] MEDS: ISOSORBIDE MONONITRATE (30MG) 30 MG TAB.SR.24H PO SCH (08:50)
[2021-05-07] MEDS: METOPROLOL TARTRATE 25 MG TABLET PO SCH ×2 (08:50→16:22)
[2021-05-07] MEDS: SERTRALINE HCL 25 MG TABLET PO SCH (08:51)
[2021-05-07] MEDS: DOCUSATE SODIUM 250 MG CAPSULE PO SCH ×2 (08:51→16:20)
[2021-05-07] MEDS: FAMOTIDINE (20 MG) 20 MG TABLET PO SCH (08:51)
[2021-05-07] MEDS: DIAZEPAM 5 MG TABLET PO SCH ×3 (08:51→16:23)
[2021-05-07] MEDS: ENOXAPARIN SODIUM 40 MG/0.4 ML DISP.SYRIN SQ SCH (08:52)
[2021-05-07] MEDS: APIXABAN 5 MG TABLET PO SCH ×2 (08:52→16:22)
[2021-05-07 12:00] VITALS: BP 132/77
[2021-05-07] MEDS: DIGOXIN 0.125 MG TABLET PO SCH (12:55)
[2021-05-07 16:00] VITALS: BP 122/68
[2021-05-07] MEDS: HYDROCODONE/APAP 5/325MG TABLET PO PRN ×2 (16:24→20:52)
[2021-05-07 20:00] VITALS: BP 111/60
[2021-05-07] MEDS: TEMAZEPAM 15 MG CAPSULE PO SCH (22:00)
[2021-05-08] MEDS: TEMAZEPAM 15 MG CAPSULE PO SCH ×2 (00:18→22:00)
[2021-05-08] MEDS: HYDROCODONE/APAP 5/325MG TABLET PO PRN ×4 (04:03→21:28)
[2021-05-08] MEDS: diphenhydrAMINE HCL 50 MG/ML VIAL IV PRN ×3 (05:25→20:29)
[2021-05-08 08:00] VITALS: BP 104/44
[2021-05-08] MEDS: ISOSORBIDE MONONITRATE (30MG) 30 MG TAB.SR.24H PO SCH (08:48)
[2021-05-08] MEDS: DOCUSATE SODIUM 250 MG CAPSULE PO SCH ×2 (08:49→17:41)
[2021-05-08] MEDS: METOPROLOL TARTRATE 25 MG TABLET PO SCH ×2 (08:49→17:42)
[2021-05-08] MEDS: DIAZEPAM 5 MG TABLET PO SCH ×3 (08:49→17:41)
[2021-05-08] MEDS: FAMOTIDINE (20 MG) 20 MG TABLET PO SCH (08:49)
[2021-05-08] MEDS: SERTRALINE HCL 25 MG TABLET PO SCH (08:50)
[2021-05-08] MEDS: APIXABAN 5 MG TABLET PO SCH ×2 (08:51→17:44)
[2021-05-08] MEDS ORDERED: Z GUARD REMEDY 4 OZ OINT TP PRN (10:00)
[2021-05-08] MEDS: Z GUARD REMEDY 4 OZ OINT TP SCH (11:59)
[2021-05-08 12:00] VITALS: BP 130/67
[2021-05-08] MEDS: DIGOXIN 0.125 MG TABLET PO SCH (12:47)
[2021-05-08 16:00] VITALS: BP 116/62
[2021-05-08] MEDS: CLOTRIMAZOLE 1% 15 GM TUBE TP SCH (17:50)
[2021-05-08 20:00] VITALS: BP 120/79
[2021-05-08 20:43] VITALS: BP 120/79
[2021-05-09] VITALS (7 sets, daily range): BP systolic 90–115; BP diastolic 50–72
[2021-05-09] MEDS: HYDROCODONE/APAP 5/325MG TABLET PO PRN ×2 (01:35→10:21)
[2021-05-09] MEDS: diphenhydrAMINE HCL 50 MG/ML VIAL IV PRN ×2 (05:44→12:10)
[2021-05-09] MEDS: DIAZEPAM 5 MG TABLET PO SCH ×2 (08:36→12:10)
[2021-05-09] MEDS: SERTRALINE HCL 25 MG TABLET PO SCH (08:36)
[2021-05-09] MEDS: FAMOTIDINE (20 MG) 20 MG TABLET PO SCH (08:36)
[2021-05-09] MEDS: APIXABAN 5 MG TABLET PO SCH (08:36)
[2021-05-09] MEDS: DOCUSATE SODIUM 250 MG CAPSULE PO SCH (08:36)
[2021-05-09] MEDS: METOPROLOL TARTRATE 25 MG TABLET PO SCH (08:37)
[2021-05-09] MEDS: ISOSORBIDE MONONITRATE (30MG) 30 MG TAB.SR.24H PO SCH (08:37)
[2021-05-09] MEDS: Z GUARD REMEDY 4 OZ OINT TP SCH (09:02)
[2021-05-09] MEDS: CLOTRIMAZOLE 1% 15 GM TUBE TP SCH (09:02)
[2021-05-09] MEDS: DIGOXIN 0.125 MG TABLET PO SCH (12:10)
[2021-05-09] MEDS ORDERED: ISOS30TA86 PO (12:52)
[2021-05-09] MEDS ORDERED: DIGO125T PO (12:52)
[2021-05-09] MEDS ORDERED: APIX5TAB PO (12:52)
[2021-05-09] MEDS ORDERED: SERT25TA5 PO (12:57)
== END 2021-05-09 14:00 | disposition home or self-care (01) | DRG 198 ==
LOC: ER 01:18 → TRANSITION 03:42 → TELE 07:48
PROVIDERS: ADMIT Nurse Practitioner Acute Care; ATTEND Hospitalist
PROC: 0HBRXZZ Excision of Toe Nail, External Approach (ICD-10-PCS; principal; 2021-05-08)
DX: I25.110 Atherosclerotic heart disease of native coronary artery with unstable angina pectoris (principal); F33.2 Major depressive disorder, recurrent severe without psychotic features; E44.0 Moderate protein-calorie malnutrition; E88.09 Other disorders of plasma-protein metabolism, not elsewhere classified; I69.351 Hemiplegia and hemiparesis following cerebral infarction affecting right dominant side; B35.1 Tinea unguium; G40.909 Epilepsy, unspecified, not intractable, without status epilepticus; I48.91 Unspecified atrial fibrillation; B35.3 Tinea pedis; Z68.43 Body mass index [BMI] 50.0-59.9, adult; B86 Scabies; E66.01 Morbid (severe) obesity due to excess calories; I10 Essential (primary) hypertension; M19.90 Unspecified osteoarthritis, unspecified site; N39.0 Urinary tract infection, site not specified; M81.0 Age-related osteoporosis without current pathological fracture; F41.0 Panic disorder [episodic paroxysmal anxiety]; I25.2 Old myocardial infarction; K44.9 Diaphragmatic hernia without obstruction or gangrene; L60.0 Ingrowing nail; Z74.01 Bed confinement status; Z91.81 History of falling; M85.80 Other specified disorders of bone density and structure, unspecified site; R26.81 Unsteadiness on feet; F21 Schizotypal disorder; Z71.3 Dietary counseling and surveillance; M79.672 Pain in left foot; M79.671 Pain in right foot; L30.8 Other specified dermatitis; Z20.822 Contact with and (suspected) exposure to COVID-19
CPT/HCPCS: 36415; 71045-TC; 80048-TC; 80053-TC; 80076-TC; 83735-TC; 83880; 84100-TC; 84484-TC; 85025-TC; 85730-TC; 87045-TC; 87081-TC; 97110-TC; 97112-TC; 97530-TC; C9803; G0378; J0696; J1160; J1200; J1650; J2270; J2405; J7040; J7060

== ENCOUNTER 2021-06-29 18:28 | Inpatient (IN) | payer MEDICARE, MEDICAID ==
[~2021-06-29] VITALS: Ht 149.9 cm; Wt 117.9 kg
[~2021-06-29 18:28] MED LIST changes: +APIX5TAB PO; +DIGO125T PO; +ISOS30TA86 PO; +SERT25TA5 PO
--- NOTE | 2021-06-29 18:32 | NUR ---
To ER bed 11, LAINE RA78 From Home "Weak/body aches/CP/ leg pain/ran out of meds", pt also c/o being more forgetful lately specifically family members name, aaox3, breathing even and non labored, connected to monitor, awaiting md jeronimo
--- NOTE | 2021-06-29 19:16 | NUR ---
SALINE LOCK ESTABLISHED, BLOOD DRAWN AND SENT TO LAB
--- NOTE | 2021-06-29 19:17 | NUR ---
DR LEON AT BEDSIDE
[2021-06-29] MEDS ORDERED: IV NS 0.9% 1,000 ML BAG IV ONE (19:30)
[2021-06-29 20:39] LABS: BASOPHILS % (AUTO) 0.4 % (0.0-2.0); EOSINOPHILS % (AUTO) 2.1 % (0.0-6.0); HEMATOCRIT 39 % (33-45); HEMOGLOBIN 12.9 g/dL (11.5-14.8); LYMPHOCYTES # (AUTO) 3.7 K/uL (0.8-4.8); LYMPHOCYTES % (AUTO) 35.4 % (20.0-44.0); MEAN CORPUSCULAR HGB CONC 33 g/dl (31.0-36.0); MEAN CORPUSCULAR VOLUME 84 fL (82-100); MONOCYTES % (AUTO) 9.6 % (2.0-12.0); NEUTROPHILS # (AUTO) 5.5 K/uL (1.8-8.9); NEUTROPHILS % (AUTO) 52.5 % (43.0-81.0); PLATELET COUNT (AUTO) 209 K/uL (150-450); RED BLOOD CELL COUNT(AUTO) 4.68 MIL/uL (4.0-5.2); WHITE BLOOD COUNT (AUTO) 10.4 K/uL (4.3-11.0)
--- NOTE | 2021-06-29 20:42 | NUR ---
confirmed with patient re: iodine allergy, pt rec'd multiple IV contrast with no adverse reactions. pt states she had a rxn from "po iodine" but not iv contrast.
[2021-06-29 20:45] LABS: ALANINE AMINOTRANSFERASE 9 U/L (12-78); ALKALINE PHOSPHATASE 71 U/L (46-116); ASPARTATE AMINOTRANSFERASE 11 U/L (15-37); BILIRUBIN,DIRECT 0.1 mg/dL (0.0-0.2); BILIRUBIN,TOTAL 0.2 mg/dL (0.2-1.0); CALCIUM, SERUM 8.8 mg/dL (8.5-10.1); CARBON DIOXIDE 24 mmol/L (21-32); CHLORIDE 104 mmol/L (98-107); CREATININE 0.7 mg/dL (0.6-1.3); GLUCOSE 101 mg/dL (74-106); POTASSIUM 3.8 mmol/L (3.5-5.1); SODIUM SERUM 139 mmol/L (136-145); TOTAL PROTEIN, SERUM 6.9 g/dL (6.4-8.2); UREA NITROGEN, BLOOD 17 mg/dL (7-18)
[2021-06-29] MEDS ORDERED: IV NS 0.9% 250 ML IV ONE (20:53)
[2021-06-29] MEDS ORDERED: IOHEXOL-350 100 ML VIAL IV ONE (20:53)
[2021-06-29] MEDS ORDERED: CT SWABBABLE VALVE TRANS SET 1 EA INFUS.SET MC ONE (20:53)
[2021-06-29] MEDS ORDERED: HYDROCODONE/APAP 5/325MG TABLET ONE (21:29)
--- NOTE | 2021-06-29 21:31 | NUR ---
ROOM 325-2
[2021-06-29] MEDS ORDERED: HYDROCODONE/APAP 5/325MG TABLET PO ONE (22:00)
--- NOTE | 2021-06-29 22:07 | NUR ---
followed up with ariel regarding ct result
--- NOTE | 2021-06-29 22:29 | NUR ---
report given dennis taylor. pt will be transported via acls protocol
[2021-06-30] VITALS (7 sets, daily range): BP systolic 108–146; BP diastolic 60–81
--- NOTE | 2021-06-30 00:47 | NUR ---
WASHERY BOSSMEDIA ARTS PROFESSOR NOTES PATIENT BROUGHT IN UNIT VIA [employer] @[phone] ACCOMPANIED BY 2 ER PERSONNEL. PATIENT A/OX4. IMPAIRED GAIT. NO S/S OF APPARENT DISTRESS IN ROOM AIR, BUT STARTED ON 2LPM OF O2 VIA NC FOR PATIENT COMFORT. C/O 7/10 PAIN IN THE CHEST THAT IS NON-RADIATING. PATIENT ASYMPTOMATIC. TELE MONITOR READING A-FIB @92 BPM-- NUCLEAR FUELS RECLAMATION ENGINEER DOCTOR, DR. RANDALL ALREADY PAGED.. NEW ID BAND ON PATIENT. BELONGINGS INVENTORIED, CHECKED AND SIGNED WITH RETAIL SELLING SPECIALIST. PATIENT WISHES TO BE FULL CODE. PATIENT REFUSED VACCINATIONS FOR FEAR OF ADVERSE EFFECTS. PATIENT REQUEST BENCH LATHE OPERATOR/CASE MANAGEMENT-- PER PATIENT SHE WAS PROMISED A WALKER FOR HOME DME LAST TIME SHE WAS ADMITTED BUT HAVE NOT GOTTEN IT, PATIENT REPORTS HAVING HOSPITAL BED AT HOME. SKIN INTACT. WHEEZING HEARD UPON AUSCULTATION. V/S FOLLOWS: T-98.3, P-100, RR-18, BP 144/62, AND SATURATING 99% ON ROOM AIR. 100% IN OXYGEN. AWAITING FOR DOCTOR'S ORDERS. WILL CONTINUE WITH PLAN OF CARE FOR PATIENT.
[2021-06-30] MEDS ORDERED: ONDANSETRON HCL/PF 4 MG/2 ML VIAL IVP PRN (02:00)
[2021-06-30] MEDS ORDERED: MAGNESIUM HYDROXIDE 30 ML UDC PO PRN (02:00)
[2021-06-30] MEDS ORDERED: ENOXAPARIN SODIUM 40 MG/0.4 ML DISP.SYRIN SQ SCH (02:00)
[2021-06-30] MEDS ORDERED: ACETAMINOPHEN 325 MG TABLET PO PRN (02:00)
[2021-06-30] MEDS ORDERED: ZOLPIDEM TARTRATE 5 MG TABLET PO PRN (02:00)
[2021-06-30] MEDS ORDERED: IV NS 0.9% 1,000 ML IV PRN (02:00)
[2021-06-30] MEDS ORDERED: Z GUARD REMEDY 4 OZ OINT TP PRN (02:00)
[2021-06-30] MEDS: HYDROCODONE/APAP 5/325MG TABLET PO PRN ×4 (02:26→15:24)
[2021-06-30 06:49] LABS: BASOPHILS % (AUTO) 0.6 % (0.0-2.0); HEMATOCRIT 37 % (33-45); HEMOGLOBIN 12.1 g/dL (11.5-14.8); LYMPHOCYTES # (AUTO) 3.4 K/uL (0.8-4.8); MEAN CORPUSCULAR HGB CONC 33 g/dl (31.0-36.0); MEAN CORPUSCULAR VOLUME 84 fL (82-100); MONOCYTES # (AUTO) 0.8 K/uL (0.1-1.30); MONOCYTES % (AUTO) 9.7 % (2.0-12.0); NEUTROPHILS # (AUTO) 3.8 K/uL (1.8-8.9); NEUTROPHILS % (AUTO) 45.7 % (43.0-81.0); PLATELET COUNT (AUTO) 192 K/uL (150-450); WHITE BLOOD COUNT (AUTO) 8.3 K/uL (4.3-11.0)
--- NOTE | 2021-06-30 07:00 | NUR ---
BAR MACHINE OPERATOR PRODUCTION OPENING NOTE PATIENT LAYING IN BED, A/O X 4. TOLERATING WELL ON 2 LPM O2 VIA CANNULA WITH NO S/S OF BAR MACHINE OPERATOR PRODUCTION OPENING NOTES PATIENT LAYING IN BED, A/O X 4, TOLERATING WELL ON 2 LPM O2 VIA CANNULA WITH NO S/S OF RESPIRATORY DISTRESS. BREATHING EVEN AND UNLABORED. NO COMPLAINTS OF PAIN OR DISCOMFORT AT THIS TIME. L WRIST 20 G AND R WRIST 20G CLEAN, INTACT, AND BOTH FLUSHING WELL. NS @ 75 VIA R WRIST 20 G. TELE MONITOR READING CONTROLLED A-FIB @ 80. SAFETY MEASURES IN PLACE: BED IN LOWEST LOCKED POSITION, SIDE RAILS UP X 2, CALL LIGHT WITHIN REACH. WILL CONTINUE TO MONITOR.
--- NOTE | 2021-06-30 07:05 | NUR ---
RN CLOSING NOTES PATIENT PAIN MANAGED WITH MEDICATION. NEEDS ATTENDED. SCHEDULED MEDS ADMINISTERED. WILL ENDORSE TO MORNING SHIFT RN FOR CONTINUITY OF CARE.
[2021-06-30 07:31] LABS: ALANINE AMINOTRANSFERASE 8 U/L (12-78); ALBUMIN 2.7 g/dL (3.4-5.0); ALKALINE PHOSPHATASE 67 U/L (46-116); ASPARTATE AMINOTRANSFERASE 9 U/L (15-37); BILIRUBIN,TOTAL 0.5 mg/dL (0.2-1.0); CALCIUM, SERUM 8.3 mg/dL (8.5-10.1); CARBON DIOXIDE 25 mmol/L (21-32); CHLORIDE 106 mmol/L (98-107); CREATININE 0.5 mg/dL (0.6-1.3); GLUCOSE 85 mg/dL (74-106); MAGNESIUM 2.2 mg/dL (1.8-2.4); PHOSPHORUS 4.1 mg/dL (2.5-4.9); POTASSIUM 3.6 mmol/L (3.5-5.1); SODIUM SERUM 138 mmol/L (136-145); TOTAL PROTEIN, SERUM 6.3 g/dL (6.4-8.2); UREA NITROGEN, BLOOD 13 mg/dL (7-18)
[2021-06-30] MEDS ORDERED: HYDR-3980 PO (07:46)
[2021-06-30 07:55] LABS: CHOLESTEROL 169 mg/dL (<200); HDL CHOLESTEROL 51 mg/dL (40-60); LDL 111 mg/dL (0-99); TRIGLYCERIDES 65 mg/dL (30-150)
--- NOTE | 2021-06-30 10:30 | NUR ---
HOUSEHOLD PERSONAL ASSISTANT NOTE PATIENT INFORMED THAT PHARMACY DOES NOT STOCK PRILOSEC (OMEPRAZOLE) AND PATIENT SHOULD BRING THE MEDICATION FROM HOME. PATIENT VERBALIZED UNDERSTANDING.
--- NOTE | 2021-06-30 10:45 | NUR ---
MS MENDENHALL NOTE PATIENT COMPLAINT OF 5/10 GENERALIZED PAIN AND REQUESTING PAIN MEDICATION. WALKER HERNÁNDEZ 5/235 PO ADMINISTERED ORDERED. WILL CONTINUE TO MONITOR FOR S/S OF PAIN. Addendum: 06/30/21 at 1156 by PRINCESS HAMM RN LAVELL BOB
[2021-06-30] MEDS ORDERED: OMEPRAZOLE XX SCH (11:00)
[2021-06-30 15:21] LABS: BILIRUBIN,URINE NEGATIVE (NEGATIVE); COLOR,URINE YELLOW (YELLOW); LEUKOCYTE ESTERASE ,URINE NEGATIVE (NEGATIVE); NITRITE, URINE NEGATIVE (NEGATIVE); PROTEIN,URINE NEGATIVE (NEGATIVE); UGLUCOSE NEGATIVE (NEGATIVE); UROBILINOGEN,URINE 0.2 EU/dL (0.2)
[2021-06-30] MEDS: DIAZEPAM 5 MG TABLET PO PRN (15:24)
--- NOTE | 2021-06-30 15:26 | NUR ---
ROLLER CLEANER NOTE PATIENT COMPLAINT OF 7/10 HEADACHE WELL ANXIETY AND REQUESTING MEDICATION. PRN NORCO 5/325 PO AND 5 MG DIAZEPAM PO ADMINISTERED ORDERED. WILL CONTINUE TO MONITOR FOR S/S OF PAIN AND ANXIETY.
[2021-06-30 16:50] LABS: BACTERIA,URINE None seen /HPF (None Seen); WBC,URINE 0-2 /HPF (0-3)
[2021-06-30] MEDS: TOPIRAMATE 25 MG TABLET PO SCH (17:45)
[2021-06-30] MEDS: APIXABAN 5 MG TABLET PO SCH (17:47)
--- NOTE | 2021-06-30 19:00 | NUR ---
FINANCIAL DEALERS CLOSING NOTE PATIENT LAYING IN BED, A/O X 4, TOLERATING WELL ON 2 LPM O2 VIA CANNULA WITH NO S/S OF RESPIRATORY DISTRESS. BREATHING EVEN AND UNLABORED. NO COMPLAINTS OF PAIN OR DISCOMFORT AT THIS TIME. L WRIST 20 G AND R WRIST 20G CLEAN, INTACT, AND BOTH FLUSHING WELL. TELE MONITOR READING CONTROLLED A-FIB @ 84. SAFETY MEASURES IN PLACE: BED IN LOWEST LOCKED POSITION, SIDE RAILS UP X 2, CALL LIGHT WITHIN REACH. WILL CONTINUE TO MONITOR.
--- NOTE | 2021-06-30 19:30 | NUR ---
RN OPENING NOTE PATIENT IN BED, AWAKE. PATIENT IS A/O X 4 ANKLE TO MAKE NEEDS KNOW. PATIENT IS ON TELE MONITOR READS AFIC 95 BPM. CURRENTLY ON RA, TOLERATING WILL AT 97% 02 SAT. BREATHING EVEN AND UNLABORED. PATIENT COMPLAINING OF PAIN, WILL MANAGE PAIN APPROPRIATELY. PATIENT HAS A L WRIST 20G AND A R WRIST 22 G PATENT AND INACT. PATIENT REFUSING IV FLUIDS AT THIS TIME, WILL TRY AGAIN AT A LATER TIME. SAFETY MEASURES IN PLACE: BED LOCKED AND IN LOWEST POSITION, CALL LIGHT WITHIN REACH, SIDE RAILS UP.
[2021-06-30] MEDS: HYDROCODONE/APAP 10/325MG TABLET PO PRN (19:54)
--- NOTE | 2021-06-30 19:54 | NUR ---
RN NOTE PATIENT GIVEN NORCO 10-325 FOR SEVERE NECK PAIN. HOT PACK PROVIDED WELL. WILL REASSESS PATIENT AT A LATER TIME.
[2021-06-30] MEDS: MENTHOL/CETYLPYRD (CEPACOL) 1 LOZ LOZENGE PO PRN (22:28)
--- NOTE | 2021-06-30 22:28 | NUR ---
RN NOTE CEPACOL GIVEN- PATIENT COMPLAINING OF COUGH AND SORE THROAT. WILL REASSESS MED EFFECTIVENESS.
[2021-07-01] VITALS: BP 127/67
[2021-07-01] MEDS: HYDROCODONE/APAP 5/325MG TABLET PO PRN ×2 (01:30→12:38)
--- NOTE | 2021-07-01 01:30 | NUR ---
RN NOTE PATIENT COMPLAINING OF CHEST PAIN, NORCO 5-325 GIVEN. WILL REASSESS AT A LATER TIME.
[2021-07-01] MEDS: MAG HYDROX/AL HYDROX/SIMETH 30 ML UDC PO PRN (03:32)
[2021-07-01] MEDS: DIAZEPAM 5 MG TABLET PO PRN ×2 (03:32→15:51)
--- NOTE | 2021-07-01 03:35 | NUR ---
RN NOTE VALIUM GIVEN D/T PATIENT EXPERIENCING ANXIETY AND MAALOX FOR CHEST PRESSURE THAT "FEELS LIKE GAS". WILL REASSESS MED EFFECTIVENESS.
[2021-07-01 04:00] VITALS: BP 134/83
[2021-07-01] MEDS: HYDROCODONE/APAP 10/325MG TABLET PO PRN ×2 (06:52→19:58)
--- NOTE | 2021-07-01 07:01 | NUR ---
RN CLOSING NOTE PATIENT IN BED, AWAKE. PATIENT IS A/O X 4 ABLE TO MAKE NEEDS KNOW. PATIENT IS ON TELE MONITOR READS AFIB CONTROLLED 77 BPM. CURRENTLY ON RA, TOLERATING WILL AT 95% 02 SAT. BREATHING EVEN AND UNLABORED. PATIENT GIVEN NORCO 10-325 AT 0652 TO MANAGE NECK PAIN. PATIENT HAS A R WRIST 22 G PATENT AND INTACT, SL AT THIS TIME. PATIENT TOOK OFF L WRIST IV ACCESS. PATIENT WORRIED ABOUT RETAINING FLUID WITH IVF ON. EDUCATION GIVEN. SAFETY MEASURES IN PLACE: BED LOCKED AND IN LOWEST POSITION, CALL LIGHT WITHIN REACH, SIDE RAILS UP. ALL NEEDS MET AND ATTENDED. ALL ORDERS CARRIED OUT. WILL ENDORSE TO DAY SHIFT NURSE FOR AWA.
--- NOTE | 2021-07-01 07:55 | NUR ---
MS/RN OPENING NOTE RECEIVED PATIENT IN BED, AWAKE. PATIENT IS A/O X 4 ABLE TO MAKE NEEDS KNOW. PATIENT IS ON TELE MONITOR READS AFIB CONTROLLED. CURRENTLY ON RA, TOLERATING WELL AT 95% 02 SAT. BREATHING EVEN AND UNLABORED. PATIENT HAS A RIGHT WRIST #22G, PATENT AND INTACT, SL AT THIS TIME. SAFETY MEASURES IN PLACE: BED LOCKED AND IN LOWEST POSITION, CALL LIGHT WITHIN REACH, SIDE RAILS UP x3. WILL CONTINUE WITH THE PLAN OF CARE.
[2021-07-01] MEDS: ISOSORBIDE MONONITRATE (30MG) 30 MG TAB.SR.24H PO SCH (09:04)
[2021-07-01] MEDS: TOPIRAMATE 25 MG TABLET PO SCH (09:04)
[2021-07-01] MEDS: APIXABAN 5 MG TABLET PO SCH ×2 (09:05→17:35)
[2021-07-01] MEDS ORDERED: PERMETHRIN 5% CRM 60 GM TUBE TP ONE (16:00)
--- NOTE | 2021-07-01 19:20 | NUR ---
TELE/RN OPENING NOTE RECEIVED PATIENT RESTING IN BED. AWAKE, ALERT AND ORIENTED X 4. ABLE TO MAKE NEEDS KNOWN. DENIES PAIN AT THIS TIME. CONTINUES ON ROOM AIR WITH NO S/SX OF RESPIRATORY DISTRESS NOTED. IV ACCESS TO RIGHT WRIST #20G INTACT AND PATENT. CONTINUES ON CARDIAC DIET WITH NO S/SX OF ASPIRATION. CALL LIGHT WITHIN REACH. ASPIRATION, FALL AND SAFETY PRECAUTIONS MAINTAINED. WILL CONTINUE TO MONITOR.
[2021-07-01 20:39] VITALS: BP 109/67
[2021-07-01] MEDS: MENTHOL/CETYLPYRD (CEPACOL) 1 LOZ LOZENGE PO PRN (23:14)
[2021-07-02] MEDS: HYDROCODONE/APAP 10/325MG TABLET PO PRN ×2 (00:02→13:58)
[2021-07-02 00:25] VITALS: BP 110/65
[2021-07-02] MEDS: DIAZEPAM 5 MG TABLET PO PRN ×2 (01:59→12:47)
[2021-07-02] MEDS: MAG HYDROX/AL HYDROX/SIMETH 30 ML UDC PO PRN (04:45)
[2021-07-02] MEDS: HYDROCODONE/APAP 5/325MG TABLET PO PRN ×2 (04:53→10:43)
--- NOTE | 2021-07-02 06:20 | NUR ---
TELE/RN CLOSING NOTE PATIENT CURRENTLY RESTING IN BED. AWAKE, ALERT AND ORIENTED X 4. ABLE TO MAKE NEEDS KNOWN. DENIES PAIN AT THIS TIME. CONTINUES ON ROOM AIR WITH NO S/SX OF RESPIRATORY DISTRESS NOTED. IV ACCESS TO RIGHT WRIST #20G INTACT AND PATENT. REFUSING IVF AT THIS TIME. WILL ENDORSE TO AM RN. CONTINUES ON CARDIAC DIET WITH NO S/SX OF ASPIRATION. CALL LIGHT WITHIN REACH. ASPIRATION, FALL AND SAFETY PRECAUTIONS MAINTAINED. WILL ENDORSE PLAN OF CARE TO ONCOMING SHIFT.
--- NOTE | 2021-07-02 07:30 | NUR ---
MS/RN OPENING NOTE RECEIVED PATIENT IN BED, AWAKE. PATIENT IS A/O X 4 ABLE TO MAKE NEEDS KNOW. PATIENT IS ON TELE MONITOR READS AFIB CONTROLLED. CURRENTLY ON RA, TOLERATING WELL, BREATHING EVEN AND UNLABORED. PATIENT HAS A RIGHT WRIST #22G, PATENT AND INTACT, SL AT THIS TIME. SAFETY MEASURES IN PLACE: BED LOCKED AND IN LOWEST POSITION, CALL LIGHT WITHIN REACH, SIDE RAILS UP x3. WILL CONTINUE TO MONITOR ACCORDINGLY.
[2021-07-02] MEDS: ISOSORBIDE MONONITRATE (30MG) 30 MG TAB.SR.24H PO SCH (08:32)
[2021-07-02] MEDS: APIXABAN 5 MG TABLET PO SCH (08:33)
[2021-07-02 08:43] VITALS: BP 108/65
[2021-07-02] MEDS ORDERED: TOPIRAMATE 25 MG TABLET PO SCH (09:00)
[2021-07-02] MEDS ORDERED: APIX5TAB PO (12:04)
[2021-07-02] MEDS ORDERED: HYDR-3972 PO (12:04)
--- NOTE | 2021-07-02 15:55 | NUR ---
CHILD AND ADOLESCENT PSYCHIATRIST NOTES DISCHARGED PATIENT IN STABLE CONDITION. VITAL SIGNS WITHIN NORMAL LIMITS. DISCHARGE INSTRUCTIONS AND FOLLOW UP INSTRUCTED. PATIENT VERBALIZED UNDERSTANDING. IV ACCESS REMOVED. COVERED WITH GAUZE, NO BLEEDING NOTED. ARMBAND REMOVED. BELONGINGS ACCOUNTED AND SIGNED FOR. PATIENT WAS PICKED UP BY 4 EMT FROM [facility]. LEFT UNIT IN STABLE CONDITION, MD AND CHARGE NURSE AWARE OF DISCHARGE.
== END 2021-07-02 16:00 | disposition home or self-care (01) | DRG 198 ==
LOC: ER 18:35 → TELE 21:45 → MED 07-01 18:46 → TELE 07-02 00:26
PROVIDERS: ADMIT Hospitalist; ATTEND Nurse Practitioner Acute Care
DX: I25.110 Atherosclerotic heart disease of native coronary artery with unstable angina pectoris (principal); E44.1 Mild protein-calorie malnutrition; E88.09 Other disorders of plasma-protein metabolism, not elsewhere classified; I69.351 Hemiplegia and hemiparesis following cerebral infarction affecting right dominant side; B86 Scabies; Z68.43 Body mass index [BMI] 50.0-59.9, adult; I48.91 Unspecified atrial fibrillation; G40.909 Epilepsy, unspecified, not intractable, without status epilepticus; G47.33 Obstructive sleep apnea (adult) (pediatric); G62.9 Polyneuropathy, unspecified; E66.01 Morbid (severe) obesity due to excess calories; I10 Essential (primary) hypertension; M81.0 Age-related osteoporosis without current pathological fracture; M19.90 Unspecified osteoarthritis, unspecified site; Z20.822 Contact with and (suspected) exposure to COVID-19; K44.9 Diaphragmatic hernia without obstruction or gangrene; K80.20 Calculus of gallbladder without cholecystitis without obstruction; K21.9 Gastro-esophageal reflux disease without esophagitis; Z86.718 Personal history of other venous thrombosis and embolism; M85.80 Other specified disorders of bone density and structure, unspecified site; Z98.51 Tubal ligation status; Z74.09 Other reduced mobility; I25.2 Old myocardial infarction; R53.1 Weakness; Z88.0 Allergy status to penicillin; Z71.3 Dietary counseling and surveillance; Z79.01 Long term (current) use of anticoagulants; Z91.19 Patient's noncompliance with other medical treatment and regimen
CPT/HCPCS: 36415; 71045-TC; 80048-TC; 80053-TC; 80061-TC; 80076-TC; 81001; 83735-TC; 84100-TC; 84484-TC; 85025-TC; 85378-TC; 87081-TC; 97112-TC; 97530-TC; C9803; G0378; J1650; J7030; J7050; Q9967

== ENCOUNTER 2021-09-07 15:39 | Inpatient (IN) | payer MEDICARE, MEDICAID ==
[~2021-09-07] VITALS: Ht 149.9 cm; Wt 121.6 kg
[~2021-09-07 15:39] MED LIST changes: -DIGO125T PO; -FAMO-131 PO; +HYDR-3972 PO; +HYDR-3980 PO; -METO25TA6 PO; -SERT25TA5 PO; -TEMA15CA5 PO
--- NOTE | 2021-09-07 15:59 | NUR ---
CODE STROKE ACTIVATED
--- NOTE | 2021-09-07 16:01 | NUR ---
PATIENT BROUGHT TO CT SCAN Addendum: 09/07/21 at 1609 by DAKOTA PATIENT BROUGHT TO CT SCAN VIA ACLS PROTOCOL
--- NOTE | 2021-09-07 16:07 | NUR ---
CALLED TELEMED [phone] BANUELOS
--- NOTE | 2021-09-07 16:09 | NUR ---
PATIENT BACK TO ROOM FROM CT SCAN
--- NOTE | 2021-09-07 16:12 | NUR ---
DR. MATOS SPEAKING TO RADIOLOGIST DR. STOREY.
[2021-09-07] MEDS ORDERED: CT SWABBABLE VALVE TRANS SET 1 EA INFUS.SET MC ONE (16:16)
[2021-09-07] MEDS ORDERED: IOHEXOL-350 100 ML VIAL IV ONE (16:16)
[2021-09-07] MEDS ORDERED: IV NS 0.9% 250 ML IV ONE (16:16)
[2021-09-07 16:33] LABS: BASOPHILS % (AUTO) 0.7 % (0.0-2.0); EOSINOPHILS % (AUTO) 2.1 % (0.0-6.0); HEMATOCRIT 40 % (33-45); HEMOGLOBIN 12.8 g/dL (11.5-14.8); LYMPHOCYTES # (AUTO) 1.9 K/uL (0.8-4.8); LYMPHOCYTES % (AUTO) 30.5 % (20.0-44.0); MEAN CORPUSCULAR HGB CONC 33 g/dl (31.0-36.0); MEAN CORPUSCULAR VOLUME 85 fL (82-100); MONOCYTES # (AUTO) 0.7 K/uL (0.1-1.30); MONOCYTES % (AUTO) 10.4 % (2.0-12.0); NEUTROPHILS # (AUTO) 3.6 K/uL (1.8-8.9); NEUTROPHILS % (AUTO) 56.3 % (43.0-81.0); PLATELET COUNT (AUTO) 207 K/uL (150-450); RED BLOOD CELL COUNT(AUTO) 4.62 MIL/uL (4.0-5.2); WHITE BLOOD COUNT (AUTO) 6.4 K/uL (4.3-11.0)
[2021-09-07 16:41] LABS: CALCIUM, SERUM 8.8 mg/dL (8.5-10.1); CARBON DIOXIDE 26 mmol/L (21-32); CHLORIDE 105 mmol/L (98-107); CREATININE 0.8 mg/dL (0.6-1.3); GLUCOSE 112 mg/dL (74-106); POTASSIUM 3.8 mmol/L (3.5-5.1); SODIUM SERUM 139 mmol/L (136-145); UREA NITROGEN, BLOOD 13 mg/dL (7-18)
--- NOTE | 2021-09-07 16:45 | NUR ---
TITI FERGUSON SENT TO LAB
--- NOTE | 2021-09-07 16:45 | NUR ---
CALLED TELEMED [phone] REQUESTED FOR TELE NEUROLOGIST TO CALL ER .
[2021-09-07 16:47] LABS: ALANINE AMINOTRANSFERASE 12 U/L (12-78); ALBUMIN 3.2 g/dL (3.4-5.0); ALKALINE PHOSPHATASE 81 U/L (46-116); ASPARTATE AMINOTRANSFERASE 13 U/L (15-37); BILIRUBIN,DIRECT 0.1 mg/dL (0.0-0.2); BILIRUBIN,TOTAL 0.5 mg/dL (0.2-1.0); TOTAL PROTEIN, SERUM 6.9 g/dL (6.4-8.2)
--- NOTE | 2021-09-07 16:51 | NUR ---
DR. BANUELOS ON TELEGRAM SPOOK WITH PT AND NUROCHECKED DONE
[2021-09-07] MEDS ORDERED: NITR0.4T48 SL (17:00)
--- NOTE | 2021-09-07 18:26 | NUR ---
[facility] CALLED GAS FURNACE INSTALLER PAGED.
--- NOTE | 2021-09-07 18:54 | NUR ---
no wekness c/o pain in lower extramity UA SENT TO LAB
[2021-09-07] MEDS: LEVOFLOXACIN 750 MG /D5W 150ML PIGGYBACK IV ONE (19:30)
[2021-09-07] MEDS ORDERED: hydrALAZINE HCL IV 20 MG VIAL IV PRN (19:30)
[2021-09-07] MEDS ORDERED: LEVOFLOXACIN 750 MG /D5W 150ML PIGGYBACK IV ONE (19:30)
--- NOTE | 2021-09-07 19:30 | NUR ---
HAND OFF TO YANIV MENDENHALL
[2021-09-07] MEDS ORDERED: LEVOFLOXACIN 750 MG /D5W 150ML 150 ML IV ONE (19:35)
[2021-09-07 19:45] LABS: BILIRUBIN,URINE NEGATIVE (NEGATIVE); COLOR,URINE YELLOW (YELLOW); LEUKOCYTE ESTERASE ,URINE NEGATIVE (NEGATIVE); NITRITE, URINE NEGATIVE (NEGATIVE); PROTEIN,URINE NEGATIVE (NEGATIVE); UGLUCOSE NEGATIVE (NEGATIVE); UROBILINOGEN,URINE 0.2 EU/dL (0.2)
[2021-09-07 20:00] LABS: BACTERIA,URINE Rare /HPF (None Seen); SQUAMOUS EPITHELIAL CELL,UR Rare /HPF (None Seen); WBC,URINE 0-2 /HPF (0-3)
[2021-09-07 20:28] LABS: THYROID STIMULATING HORMONE 1.66 uIU/mL (0.358-3.74)
--- NOTE | 2021-09-07 20:58 | NUR ---
BED 112-2
--- NOTE | 2021-09-07 20:59 | NUR ---
CALLED TO GIVE REPORT WAS TOLD TO CALL BACK IN 15 MINS
--- NOTE | 2021-09-07 21:42 | NUR ---
REPORT GIVEN TO CHANG
--- NOTE | 2021-09-07 22:11 | NUR ---
PT TRANSPORTED TO ROOM 112-2 ON WINDSHIELD REPAIR TECHNICIAN PER ACLS PROTOCOL WITHOUT INCIDENT
[2021-09-07] MEDS: ENOXAPARIN SODIUM 40 MG/0.4 ML DISP.SYRIN SQ SCH (22:53)
[2021-09-07] MEDS: HYDROCODONE/APAP 10/325MG TABLET PO PRN (22:54)
--- NOTE | 2021-09-07 23:00 | NUR ---
LOG GETTERALUMNI SECRETARY NOTE PATIENT BROUGHT IN UNIT AT 2210, ACCOMPANIED BY 2 ER PERSONNEL VIA STRETCHER. A/OX4 AND FORGETFUL. NO S/S OF APPARENT DISTRESS IN ROOM AIR. C/O 10/10 PAIN IN ALL 4 EXTREMITIES-- GIVEN NORCO 10 ORDERED PRN. TELE MONITOR READING A-FIB IN CONTROLLED RATE. PASSES NURSING SWALLOW EVAL. NIHSS SCORE OF 2. PATIENT NOTED TO HAVE GUERRA IN DRAINING CLEAR, YELLOW URINE. L.AC #20G IN SALINE LOCK ONLY. PATIENT WISHES TO BE FULL CODE AT THIS TIME. PATIENT REQUEST TO BE PUT IN REHAB UPON DISCHARGE, FOR HER LEGS. NEW ID BAND ON PATIENT. BELONGINGS INVENTORIED AND SIGNED FOR. ORIENTED IN THE UNIT AND THE USE OF CALL LIGHT. PATIENT IS NOT UP TO DATE WITH HER IMMUNIZATION AND REFUSES VACCINE FOR FEAR OF ADVERSE EFFECT. SAFETY IN PLACE. ALL NEEDS ATTENDED FOR NOW. WILL CONTINUE WITH PATIENT'S CARE PLAN. ADMISSION V/S FOLLOWS: 110/78, HR 84, T-97.9, RR-20, WT- 267 LBS. WILL MONITOR.
[2021-09-07] MEDS: BLOOD SUGAR DIAGNOSTIC 1 EACH STRIP IN SCH (23:02)
[2021-09-07 23:41] VITALS: BP 110/78
[2021-09-08] MEDS ORDERED: BLOOD SUGAR DIAGNOSTIC 1 EACH STRIP IN SCH
[2021-09-08] MEDS: HYDROCODONE/APAP 10/325MG TABLET PO PRN ×4 (00:40→17:19)
--- NOTE | 2021-09-08 00:42 | NUR ---
CNC TECHNICIAN NOTE PATIENT CRYING, MOANING OF PAIN. 10/10 PAIN ON HER LEGS. PATIENT MADE AWARE AND REMINDED THAT HER NORCO IS ONLY 4X A DAY. PATIENT ACKNOWLEDGED. WILL- REASSESS.
[2021-09-08 06:36] LABS: BASOPHILS % (AUTO) 0.4 % (0.0-2.0); EOSINOPHILS % (AUTO) 3.2 % (0.0-6.0); HEMATOCRIT 37 % (33-45); HEMOGLOBIN 12.4 g/dL (11.5-14.8); LYMPHOCYTES # (AUTO) 2.3 K/uL (0.8-4.8); LYMPHOCYTES % (AUTO) 37.9 % (20.0-44.0); MEAN CORPUSCULAR HGB CONC 33 g/dl (31.0-36.0); MEAN CORPUSCULAR VOLUME 84 fL (82-100); MONOCYTES # (AUTO) 0.6 K/uL (0.1-1.30); MONOCYTES % (AUTO) 9.7 % (2.0-12.0); NEUTROPHILS % (AUTO) 48.8 % (43.0-81.0); PLATELET COUNT (AUTO) 213 K/uL (150-450); RED BLOOD CELL COUNT(AUTO) 4.45 MIL/uL (4.0-5.2); WHITE BLOOD COUNT (AUTO) 6.1 K/uL (4.3-11.0)
[2021-09-08] MEDS: BLOOD SUGAR DIAGNOSTIC 1 EACH STRIP IN SCH ×4 (07:08→21:21)
[2021-09-08 07:16] LABS: CALCIUM, SERUM 8.2 mg/dL (8.5-10.1); CARBON DIOXIDE 27 mmol/L (21-32); CHLORIDE 103 mmol/L (98-107); CREATININE 0.8 mg/dL (0.6-1.3); GLUCOSE 82 mg/dL (74-106); SODIUM SERUM 138 mmol/L (136-145); UREA NITROGEN, BLOOD 10 mg/dL (7-18)
--- NOTE | 2021-09-08 07:30 | NUR ---
RN OPENING NOTES RECIEVED PATIENT FROM NIGHTSHIFT RN. PATIENT CURRENTLY AWAKE IN BED SIPPING WATER. BREATHING IS EVEN AND UNLABORED ON ROOM AIR. PATIENT ON GUERRA CATHETER DRAINING YELLOW URINE. IV ACCESS ON LEFT AC PATENT AND FLUSHING WELL. REDNESS NOTED ON SKIN FOLDS OF THE BODY, AREAS ARE PHOTOGRAPHED AND DOCUMENTED IN THE PATIENTS CHART. WILL CONTINUE PLAN OF CARE AND ANTICIPATE NEEDS.
--- NOTE | 2021-09-08 07:30 | NUR ---
RN CLOSING NOTE NEEDS ATTENDED. REPORT GIVEN TO AM RN FOR CONTINUITY OF CARE.
--- NOTE | 2021-09-08 07:41 | NUR ---
WOUND CARQE CONSULT: PT PRESENTS WITH RASHES TO SKIN FOLDS, PRESENT ON ADMISSION. RECOMMENDATIONS MADE FOR SKIN PROTECTION. PT STATES THAT HER FACE IS ITCHING. DEFER TO PMD FOR FACE. PT IS ON KAITLYNN ISOFLEX LOW AIRLOSS BED. MD IN AGREEMENT WITH PLAN OF CARE.
[2021-09-08] MEDS ORDERED: Z GUARD REMEDY 4 OZ OINT TP PRN (08:00)
[2021-09-08] MEDS: Z GUARD REMEDY 4 OZ OINT TP SCH (09:46)
[2021-09-08] MEDS: CLOTRIMAZOLE 1% 15 GM TUBE TP SCH ×2 (09:46→17:17)
--- NOTE | 2021-09-08 15:42 | NUR ---
SS Note: SS received consult for TIA. Pt. Is a 76-year-old female who demonstrates adequate insight to the reason for hospitalization. Per EMR, pt. presents to the hospital for TIA. Pt. was oriented x4, alert, and cooperative. During interview, pt. was capable of following directions and appeared groomed. Pt.s speech was at a normal rate and pt.s mood was elevated. Pt. reported no hx of mental health, substance abuse, suicidal ideation, or homicidal ideation. Pt. denies auditory hallucinations, visual hallucinations, paranoia, or delusions. SW explored pt.s living situation. Per pt., she lives at home with her grandson and caregiver Nicolasa [[id number] [place] [address]]. Per pt., her caregiver is supportive. Pt. has history of a stroke, but this time around she felt weaker than usual, so her caregiver called the EMS. Plan: SW provided available resources and pt. accepted. SW access pt. with the PHQ9 and she scored 4, there is no need for a psych consult. Resources Provided: Stroke Empowerment Packet.
--- NOTE | 2021-09-08 18:39 | NUR ---
RN CLOSING NOTES PATIENT CURRENTLY AWAKE IN BED WATCHING TELEVISION. BREATHING IS EVEN AND UNLABORED ON ROOM AIR. PATIENT ON GUERRA CATHETER DRAINING YELLOW URINE. IV ACCESS ON LEFT AC PATENT AND FLUSHING WELL. PATIENT COMPLAINED THAT TAPE SECURING IV DRESSING WAS ITCHY. OFFERED Z GUARD TO RELIEVE ITCH. INFORMED HER THAT IF THE IV SITE SHOULD CAUSE IRRITATION OR BECOME RED AND WARM TO INFORM NURSE CARING FOR HER. REDNESS NOTED ON SKIN FOLDS OF THE BODY, AREAS ARE PHOTOGRAPHED AND DOCUMENTED IN THE PATIENTS CHART. ALL DUE MEDS GIVEN. PATIENT KEPT CLEAN AND DRY THROUGHOUT SHIFT. BED IN LOWEST POSITION, CALL LIGHT WITHIN REACH, SIDE RAILS UP. WILL ENDORSE TO NIGHTSHIFT RN FOR AWA.
--- NOTE | 2021-09-08 19:20 | NUR ---
RN NOTES RECEIVED PT FOR CONTINUITY OF CARE. PATIENT A/OX4 IN NO S/SX OF ACUTE DISTRESS AT THIS TIME; CURRENTLY ON ROOM AIR ; WITH 02 SAT >95% AT THIS TIME. WILL ENSURE SAFETY MEASURES WITHIN THE SHIFT. PATIENT BED ALARM IS ON. HEAD OF BED ELEVATED. BED IS LOCKED, IN LOWEST POSITION AND SIDE RAILS UP. CALL LIGHT WITHIN REACH OF THE PATIENT. APPLICABLE ISOLATION PRECAUTIONS IN PLACE. WILL CONTINUE TO MONITOR AND REASSESS FOR ANY CHANGES AND WILL CARRY OUT ANY ONGOING AND ACTIVE MD ORDER.
[2021-09-08 20:00] VITALS: BP 148/70
[2021-09-08] MEDS: ENOXAPARIN SODIUM 40 MG/0.4 ML DISP.SYRIN SQ SCH (21:19)
--- NOTE | 2021-09-08 23:15 | NUR ---
RN NOTES PT REQUESTING FOR SLEEPING MEDS. RN AKCNOWLEDGED. NOTIFIED ONCALL (DR. HAMILTON) PROVIDED UPDATE ABOUT PT, SECURED ORDER FOR AMBIEN 5MG. ALSO ADVISED THAT PT IS GETTING ACCU CHECK BUT NO SLIDING SCALE, LAST RESULT WAS 179MG/DL , PREVIOUS RESULT ALSO PROVIDED TO MD. AKCOWLEDGED. NO NEW ORDERS FOR SLIDING SCALE PER MD. RN ACKNOWLEDGED. SURVEY METHODOLOGIST MADE AWARE. WILL CARRY OUT MD ORDER.
[2021-09-08] MEDS: ZOLPIDEM TARTRATE 5 MG TABLET PO PRN (23:34)
[2021-09-09] VITALS: BP 136/68
[2021-09-09 04:00] VITALS: BP 140/60
--- NOTE | 2021-09-09 04:00 | NUR ---
RN NOTES PATIENT REMAINED TO BE IN NO SIGNS OF ACUTE RESPIRATORY DISTRESS , VITAL SIGNS STABLE AT THIS TIME. REGULAR ASSIST IN TURNING AND REPOSITIONING DONE, AND AM PATIENT CARE RENDERED WILL CONTINUE TO MONITOR AND REASSESS FOR ANY CHANGES THROUGHOUT THE SHIFT.
--- NOTE | 2021-09-09 06:32 | NUR ---
RN CLOSING NOTE: PATIENT REMAINS IN ROOM IN NO SIGNS OF RESPIRATORY DISTRESS, PATIENT STILL ON ROOM AIR;TOLERATING WELL SATURATING @ >95% SP02. SAFETY MEASURES IMPLEMENTED, BED IN LOWEST POSITION, LOCKED, SIDE RAILS UP, CALL LIGHT WITHIN REACH. ALL NEEDS AND ORDERS ADDRESSED DURING THE SHIFT. IV ACCESS MAINTAINED INTACT, SECURED AND FLUSHING WELL. ALL DUE MEDS GIVEN ORDERED & SCHEDULED ; PATIENT TOLERATED WELL. PATIENT KEPT CLEAN AND COMFORTABLE WITHIN THE SHIFT. PATIENT ENDORSED TO INCOMING SHIFT RN WITH STABLE VITAL SIGN AND FOR CONTINUITY OF CARE.
--- NOTE | 2021-09-09 07:24 | NUR ---
RN NOTES RECEIVED PT FOR CONTINUITY OF CARE. PATIENT A/OX4 IN NO S/SX OF ACUTE DISTRESS AT THIS TIME; CURRENTLY ON ROOM AIR. SAFETY MEASURE IN PLACE. PATIENT BED ALARM IS ON. HEAD OF BED ELEVATED. BED IS LOCKED, IN LOWEST POSITION AND SIDE RAILS UP. CALL LIGHT WITHIN REACH OF THE PATIENT
[2021-09-09] MEDS: BLOOD SUGAR DIAGNOSTIC 1 EACH STRIP IN SCH ×4 (07:32→21:00)
[2021-09-09] MEDS: HYDROCODONE/APAP 10/325MG TABLET PO PRN ×2 (07:32→21:00)
[2021-09-09 08:00] VITALS: BP 115/72
--- NOTE | 2021-09-09 09:00 | NUR ---
RN NOTE NIHSS SCORE 2 NO CHANGES FROM PREVIOUS SCORE
[2021-09-09] MEDS: CLOTRIMAZOLE 1% 15 GM TUBE TP SCH ×2 (09:29→17:19)
[2021-09-09] MEDS: Z GUARD REMEDY 4 OZ OINT TP SCH (09:29)
[2021-09-09] MEDS: CARISOPRODOL 350 MG TABLET PO SCH ×4 (10:10→20:46)
[2021-09-09 16:00] VITALS: BP 95/64
--- NOTE | 2021-09-09 19:15 | NUR ---
RN NOTES RECEIVED PT FOR CONTINUITY OF CARE. PATIENT A/OX4 IN NO S/SX OF ACUTE DISTRESS AT THIS TIME; CURRENTLY ON ROOM AIR ; WITH 02 SAT 96% AT THIS TIME. WILL ENSURE SAFETY MEASURES WITHIN THE SHIFT. PATIENT BED ALARM IS ON. HEAD OF BED ELEVATED. BED IS LOCKED, IN LOWEST POSITION AND SIDE RAILS UP. CALL LIGHT WITHIN REACH OF THE PATIENT. APPLICABLE ISOLATION PRECAUTIONS IN PLACE. WILL CONTINUE TO MONITOR AND REASSESS FOR ANY CHANGES AND WILL CARRY OUT ANY ONGOING AND ACTIVE MD ORDER.
[2021-09-09] MEDS: ENOXAPARIN SODIUM 40 MG/0.4 ML DISP.SYRIN SQ SCH (20:47)
[2021-09-09] MEDS: ZOLPIDEM TARTRATE 5 MG TABLET PO PRN (22:53)
[2021-09-10 04:00] VITALS: BP 112/72
[2021-09-10] MEDS: HYDROCODONE/APAP 10/325MG TABLET PO PRN ×3 (06:36→20:03)
--- NOTE | 2021-09-10 06:51 | NUR ---
RN CLOSING NOTE: PATIENT REMAINS IN ROOM IN NO SIGNS OF RESPIRATORY DISTRESS, PATIENT STILL ON ROOM AIR;TOLERATING WELL SATURATING @95% SP02. SAFETY MEASURES IMPLEMENTED, BED IN LOWEST POSITION, LOCKED, SIDE RAILS UP, CALL LIGHT WITHIN REACH. ALL NEEDS AND ORDERS ADDRESSED DURING THE SHIFT. IV ACCESS MAINTAINED INTACT, SECURED AND FLUSHING WELL. ALL DUE MEDS GIVEN ORDERED & SCHEDULED ; PATIENT TOLERATED WELL. PATIENT KEPT CLEAN AND COMFORTABLE WITHIN THE SHIFT. PATIENT ENDORSED TO INCOMING SHIFT RN WITH STABLE VITAL SIGN AND FOR CONTINUITY OF CARE.
--- NOTE | 2021-09-10 07:22 | NUR ---
MS RN opening notes: RECEIVED PATIENT IN BED, AO X 4, IN NO ACUTE DISTRESS AT THIS TIME. RESPIRATION UNLABORED, SATURATION AT 98% ON ROOM AIR, IV LINE AT LEFT HAND 24G, PATENT AND FLUSHING WELL, NO S/S OF INFECTION OR INFILTRATION. SAFETY MEASURES IMPLEMENTED. PATIENT BED ALARM IS ON. HEAD OF BED ELEVATED. BED IS LOCKED, IN LOWEST POSITION AND SIDE RAILS UP. CALL LIGHT WITHIN REACH OF THE PATIENT. WILL CONTINUE TO MONITOR AND REASSESS FOR ANY CHANGES.
[2021-09-10 08:00] VITALS: BP 98/61
[2021-09-10] MEDS: BLOOD SUGAR DIAGNOSTIC 1 EACH STRIP IN SCH ×4 (08:00→22:53)
[2021-09-10] MEDS: CARISOPRODOL 350 MG TABLET PO SCH ×4 (08:05→20:32)
[2021-09-10] MEDS: CLOTRIMAZOLE 1% 15 GM TUBE TP SCH ×2 (08:26→16:59)
[2021-09-10] MEDS: Z GUARD REMEDY 4 OZ OINT TP SCH (08:26)
--- NOTE | 2021-09-10 08:55 | NUR ---
RN NOTES: SEEN BY DR CAMACHO, PT NOTED WITH ITCHINESS AND REDNESS WITH ORDER OF BENADRYL 50 MG PO EVERY 8 HOURS
[2021-09-10] MEDS ORDERED: diphenhydrAMINE HCL 50 MG CAPSULE PO SCH (09:00)
[2021-09-10] MEDS: diphenhydrAMINE HCL 25 MG CAPSULE PO SCH ×2 (09:17→16:59)
[2021-09-10 16:00] VITALS: BP 112/66
--- NOTE | 2021-09-10 19:28 | NUR ---
GLOBAL RISK MANAGEMENT DIRECTOR CLOSING NOTE: PATIENT REMAINS IN ROOM IN NO SIGNS OF RESPIRATORY DISTRESS, PATIENT STILL ON ROOM AIR;TOLERATING WELL SATURATING @ 94%. SAFETY MEASURES IMPLEMENTED, BED IN LOWEST POSITION, LOCKED, SIDE RAILS UP, CALL LIGHT WITHIN REACH. ALL NEEDS AND ORDERS ADDRESSED DURING THE SHIFT. IV ACCESS MAINTAINED INTACT, SECURED AND FLUSHING WELL. ALL DUE MEDS GIVEN ORDERED & SCHEDULED ; PATIENT TOLERATED WELL. PATIENT KEPT CLEAN AND COMFORTABLE WITHIN THE SHIFT. PATIENT ENDORSED TO INCOMING SHIFT RN WITH STABLE VITAL SIGN AND FOR CONTINUITY OF CARE.
--- NOTE | 2021-09-10 19:47 | NUR ---
MS RN Opening Note Pt received in bed A&O x4, calm, cooperative, able to make needs known. Pt on RA with current O2sat 94%, no s/s of resp distress, no SOB, non-labored and equal breathing, appears comfortable. VSS at the moment, will continue to monitor as needed. Ivory intact and patent draining clear and yellow urine. IV access on left hand 24G intact and patent; flushes easily with no resistance, no s/s of infiltration; currently has no fluids/meds running through it. Bed in lowest position, call light within reach, side rails up x2. Will continue to monitor throughout the night.
[2021-09-10 20:00] VITALS: BP 114/65
--- NOTE | 2021-09-10 20:03 | NUR ---
RN Note Pt complains of 10/10 pain on her vaginal area and is described as a burning sensation. Pt requests for pain medicine. Pt given Hydrocodone 10/325 mg 1 tab. Will monitor for effectiveness.
[2021-09-10] MEDS: ENOXAPARIN SODIUM 40 MG/0.4 ML DISP.SYRIN SQ SCH (20:33)
--- NOTE | 2021-09-10 21:16 | NUR ---
RN Note Pt reports her pain decreased from 10/10 to 7/10.
[2021-09-11] MEDS: diphenhydrAMINE HCL 25 MG CAPSULE PO SCH ×3 (00:10→16:06)
[2021-09-11] MEDS: HYDROCODONE/APAP 10/325MG TABLET PO PRN ×3 (03:19→14:43)
--- NOTE | 2021-09-11 03:22 | NUR ---
RN Note Pt complains of a 9/10 pain on her back that's described as sharp. Pt requests for pain medicine. Pt administered 1 tab of hydrocodone. Will monitor for effectiveness
[2021-09-11 04:00] VITALS: BP 125/76
--- NOTE | 2021-09-11 04:39 | NUR ---
RN Note Pt reports her pain decreased from 9/10 to 5/10.
--- NOTE | 2021-09-11 06:32 | NUR ---
MS RN Closing Note Pt remains in bed A&O x4, calm, cooperative, slept intermittently throughout the night. Pt remains on RA with current O2sat ranging from 93%-94%, no s/s of resp distress, non-labored and equal breathing. Pt noted to have episode of SOB last night when she attempted to use the bedside commode; suggested to pt to use bedpan for BMs; pt agreed, but no BM during shift. VSS throughout the night, no significant changes. Ivory intact and patent draining clear and yellow urine; pt has complaint of burning sensation in vaginal area. IV access on left hand 24G intact and patent; flushes easily with no resistance, no s/s of infiltration; currently has no fluids/meds running through it. Bed in lowest position, call light within reach, side rails up x2. Will endorse to dayshift nurse to continue care.
[2021-09-11] MEDS: BLOOD SUGAR DIAGNOSTIC 1 EACH STRIP IN SCH ×4 (07:30→21:14)
--- NOTE | 2021-09-11 07:30 | NUR ---
RN Opening Note Patient in bed A&O x4, calm, cooperative. Pt remains on RA with current O2sat ranging from 93%-94%, no s/s of resp distress, non-labored and equal breathing. Ivory intact and patent draining clear and yellow urine. IV access on left hand 24G intact and patent; flushes easily with no resistance, no s/s of infiltration; currently has no fluids/meds running through it. Bed in lowest position, call light within reach, side rails up x2. Will continue plan of care and anticipate needs.
[2021-09-11] MEDS: CARISOPRODOL 350 MG TABLET PO SCH ×4 (08:38→21:59)
[2021-09-11] MEDS: Z GUARD REMEDY 4 OZ OINT TP SCH (08:42)
[2021-09-11] MEDS: CLOTRIMAZOLE 1% 15 GM TUBE TP SCH ×2 (08:42→16:06)
[2021-09-11] MEDS ORDERED: ATOR10TA PO (09:14)
[2021-09-11] MEDS ORDERED: ASPI-1169 PO (09:14)
[2021-09-11] MEDS ORDERED: CLOT15CR35 TP (09:14)
[2021-09-11] MEDS ORDERED: CARI350T27 PO (09:14)
--- NOTE | 2021-09-11 10:06 | NUR ---
PATIENT WANTS HER GUERRA REMOVED AN HOUR BEFORE SHE DISCHARGE AROUND 6 PM,REFUSED TO REMOVE HER GUERRA NOW.
[2021-09-11 12:00] VITALS: BP 124/61
[2021-09-11] MEDS ORDERED: ASPIRIN 325 MG TABLET PO SCH (17:00)
[2021-09-11] MEDS ORDERED: ASPIRIN 325 MG TABLET PO ONE (17:00)
--- NOTE | 2021-09-11 17:05 | NUR ---
patient c/o chest pain,,dr. kilgore notified and ordered work up and hold d/c,cm made aware.
[2021-09-11] MEDS: NITROGLYCERIN 0.4 MG/TAB BOTTLE SL PRN (17:20)
--- NOTE | 2021-09-11 17:59 | NUR ---
PATIENT TRANSFERRED TO [address] BED 1. GAVE HAND OFF REPORT TO ANISA MENDENHALL. ALL BELONGINGS ACCOUNTED FOR. TELE MONITORING BOX REMOVED.
--- NOTE | 2021-09-11 19:23 | NUR ---
DATA SOLUTIONS ARCHITECT OPENING NOTES RECEIVED PATIENT RESTING IN BED COMFORTABLY; A/OX4, PATIENT ABLE TO MAKE NEEDS KNOWN; BREATHING EVEN AND UNLABORED; ON 2LPM VIA NC, TOLERATING WELL; NO SOB NOTED; PER AM SHIFT, PATIENT WAS TO BE D/C 1999 BUT CANCELLED DUE TO PATIENT REPORTING CHEST PAIN EARLIER TODAY; PER PATIENT, FEELS BETTER AND DENIES CHEST PAIN AT THIS TIME; WILL CONT TO MONITOR; TELE MONITOR READS SINUS RHYTHM; PATIENT HAS L HAND 24G, INTACT AND PATENT, FLUSHING WELL; GUERRA CATH PRESENT WITH YELLOW OUTPUT NOTED; SAFETY PRECAUTIONS IMPLEMENTED; BED LOCKED IN LOW POSITION; SIDE RAILX2, CALL LIGHT WITHIN REACH; WILL CONT PLAN OF CARE
[2021-09-11 20:00] VITALS: BP 122/84
[2021-09-11] MEDS: ENOXAPARIN SODIUM 40 MG/0.4 ML DISP.SYRIN SQ SCH (21:21)
--- NOTE | 2021-09-11 21:31 | NUR ---
HOTEL RESERVATION AGENT NOTE PATIENT [address] NOT IN [place] OR C[place]ET[place]; SPOKE WITH MUSTAPHA IF PATIENT MED IS STOCKED IN UNIT, PER MUSTAPHA WILL CALL ME BACK; CHARGE NURSE AWARE
--- NOTE | 2021-09-11 21:40 | NUR ---
OSD CLERK NOTE PER MUSTAPHA, PATIENT SOMA 350MG TABLET NOT STOCKED IN UNIT OR CASSETTE; CHARGE NURSE MADE AWARE; AWAITING NURSING AIRCRAFT DETAIL DRAFTSPERSON
[2021-09-11] MEDS ORDERED: CARISOPRODOL 350 MG TABLET ONE (21:55)
[2021-09-12] VITALS: BP 105/58
[2021-09-12] MEDS: HYDROCODONE/APAP 10/325MG TABLET PO PRN ×4 (00:36→17:04)
[2021-09-12] MEDS: diphenhydrAMINE HCL 25 MG CAPSULE PO SCH ×3 (01:36→17:04)
[2021-09-12 04:00] VITALS: BP 100/62
[2021-09-12] MEDS: NITROGLYCERIN 0.4 MG/TAB BOTTLE SL PRN (06:09)
--- NOTE | 2021-09-12 06:09 | NUR ---
MARKETING LEAD NOTES PATIENT COMPLAINT OF CHEST PAIN, VITALS 107/63, HR: 90, SPO2: 94% ON ROOM AIR; PATIENT REQUESTING NITRO SL; MEDICATION ADMINISTERED PER ORDER; PER PATIENT, FELT RELIEF AFTER NITRO, WILL INFORM DAY SHIFT
[2021-09-12] MEDS: BLOOD SUGAR DIAGNOSTIC 1 EACH STRIP IN SCH ×3 (06:39→17:04)
--- NOTE | 2021-09-12 07:37 | NUR ---
LINING BRUSHER CLOSING NOTES PATIENT RESTING IN BED COMFORTABLY; A/OX4, PATIENT ABLE TO MAKE NEEDS KNOWN; BREATHING EVEN AND UNLABORED; ON 2LPM VIA NC, TOLERATING WELL; NO SOB NOTED; PATIENT POSSIBLE D/C TODAY; PER PATIENT, FEELS BETTER AND DENIES CHEST PAIN AT THIS TIME; WILL CONT TO MONITOR; TELE MONITOR READS SINUS RHYTHM 80S - SINUS TACHY 108; PATIENT HAS L HAND 24G, INTACT AND PATENT, FLUSHING WELL; GUERRA CATH PRESENT WITH YELLOW OUTPUT NOTED; ALL NEEDS RENDERED SAFETY PRECAUTIONS IMPLEMENTED; BED LOCKED IN LOW POSITION; SIDE RAILX2, CALL LIGHT WITHIN REACH; WILL ENDORSE AWA TO ONCOMING SHIFT
[2021-09-12 08:00] VITALS: BP 97/54
[2021-09-12] MEDS: CARISOPRODOL 350 MG TABLET PO SCH ×3 (09:00→17:03)
--- NOTE | 2021-09-12 09:13 | NUR ---
bp low in am,requesting pain med now bp 105/66 heart rate 97,pox 945 Addendum: 09/12/21 at 0915 by ELIZ BREWER RN above correction pox 94%.
[2021-09-12] MEDS: Z GUARD REMEDY 4 OZ OINT TP SCH (09:20)
[2021-09-12] MEDS ORDERED: ATORVASTATIN 40 MG TABLET PO SCH (10:30)
[2021-09-12 12:00] VITALS: BP 135/76
[2021-09-12] MEDS: CLOTRIMAZOLE 1% 15 GM TUBE TP SCH ×2 (12:57→17:00)
--- NOTE | 2021-09-12 13:20 | NUR ---
REFUSING DISCHARGE PHOTOS.
--- NOTE | 2021-09-12 14:08 | NUR ---
f/cath removed,awaiting for pt. to void.to be dc'd today.
--- NOTE | 2021-09-12 15:30 | NUR ---
pt. voidedgetting readyto go home.hep lock out.
[2021-09-12 16:00] VITALS: BP 107/62
--- NOTE | 2021-09-12 18:20 | NUR ---
called house to assure grandson present,and he is preparing for pt.
--- NOTE | 2021-09-12 18:25 | NUR ---
ambulance here,skip load driver given report.taken via amb. to home.
== END 2021-09-12 18:30 | disposition home or self-care (01) | DRG 69 ==
LOC: ER 15:45 → TELE1 21:02 → MEDSG1 09-09 07:46 → TELE 09-11 17:47
PROVIDERS: ADMIT Internal Medicine; ATTEND Internal Medicine
DX: G45.9 Transient cerebral ischemic attack, unspecified (principal); E43 Unspecified severe protein-calorie malnutrition; E87.2 Acidosis; Z68.43 Body mass index [BMI] 50.0-59.9, adult; G62.9 Polyneuropathy, unspecified; I25.10 Atherosclerotic heart disease of native coronary artery without angina pectoris; E66.01 Morbid (severe) obesity due to excess calories; I10 Essential (primary) hypertension; M19.90 Unspecified osteoarthritis, unspecified site; M81.0 Age-related osteoporosis without current pathological fracture; Z86.73 Personal history of transient ischemic attack (TIA), and cerebral infarction without residual deficits; Z79.01 Long term (current) use of anticoagulants; Z98.51 Tubal ligation status; Z98.890 Other specified postprocedural states; Z88.5 Allergy status to narcotic agent; Z88.0 Allergy status to penicillin; Z88.8 Allergy status to other drugs, medicaments and biological substances; Z88.1 Allergy status to other antibiotic agents; Z91.041 Radiographic dye allergy status; Z79.899 Other long term (current) drug therapy; E86.0 Dehydration; Z86.69 Personal history of other diseases of the nervous system and sense organs
CPT/HCPCS: 36415; 70450-TC; 70496-TC; 70498-TC; 71045-TC; 80048-TC; 80076-TC; 81001; 82962-TC; 83605-TC; 83880; 84443-TC; 84484-TC; 85025-TC; 85730-TC; 87040-TC; 87081-TC; 92526; 92611-TC; 93307-TC; 93880-TC; 97112-TC; 97530-TC; C9803; G0378; J1650; J1956; J7050; Q0163; Q9967

== ENCOUNTER 2022-03-28 14:43 | Inpatient (IN) | payer MEDICARE, MEDICAID ==
[~2022-03-28] VITALS: Ht 149.9 cm; Wt 115.2 kg
[~2022-03-28 14:43] MED LIST changes: -APIX5TAB PO; +ASPI-1169 PO; +ATOR10TA PO; +CLOT15CR35 TP; -DIAZ5TAB PO; -HYDR-3972 PO; -ISOS30TA86 PO; +NITR0.4T48 SL; -OMEP20TA5 PO; -TOPI25TA PO
--- NOTE | 2022-03-28 16:00 | NUR ---
RECEIVED PT 76 YRS FEMALE FROM HOME BY KENRICK C/O CHEST PAIN CAME AND JOHN NO SOB OR DISTRESS
--- NOTE | 2022-03-28 16:04 | NUR ---
GRANDDAUGHTER RENY STANTON CALLED FOR UPDATE, ASKED FOR CALLBACK AT [phone]
[2022-03-28 16:25] LABS: BASOPHILS % (AUTO) 0.4 % (0.0-2.0); EOSINOPHILS % (AUTO) 0.1 % (0.0-6.0); HEMATOCRIT 43 % (33-45); HEMOGLOBIN 13.8 g/dL (11.5-14.8); LYMPHOCYTES # (AUTO) 1.3 K/uL (0.8-4.8); LYMPHOCYTES % (AUTO) 12.1 % (20.0-44.0); MEAN CORPUSCULAR HGB CONC 32 g/dl (31.0-36.0); MEAN CORPUSCULAR VOLUME 83 fL (82-100); MONOCYTES # (AUTO) 0.6 K/uL (0.1-1.30); MONOCYTES % (AUTO) 5.4 % (2.0-12.0); NEUTROPHILS # (AUTO) 9.1 K/uL (1.8-8.9); PLATELET COUNT (AUTO) 173 K/uL (150-450); WHITE BLOOD COUNT (AUTO) 11.1 K/uL (4.3-11.0)
--- NOTE | 2022-03-28 16:35 | NUR ---
SEEN BY DR. MÉNDEZ
[2022-03-28 16:42] LABS: CALCIUM, SERUM 8.6 mg/dL (8.5-10.1); CARBON DIOXIDE 30 mmol/L (21-32); CHLORIDE 98 mmol/L (98-107); CREATININE 0.7 mg/dL (0.6-1.3); GLUCOSE 121 mg/dL (74-106); POTASSIUM 4.1 mmol/L (3.5-5.1); SODIUM SERUM 133 mmol/L (136-145); UREA NITROGEN, BLOOD 10 mg/dL (7-18)
--- NOTE | 2022-03-28 16:45 | NUR ---
BLOOD DROW BY LAB TACH AT BED SIDE
[2022-03-28] MEDS ORDERED: DIPH25CA51 PO (17:11)
[2022-03-28] MEDS ORDERED: DOCU250C14 PO (17:11)
[2022-03-28] MEDS ORDERED: POLY15DR40 EACHEYE ×2 (17:11)
[2022-03-28] MEDS ORDERED: IPRA3AMP23 IH (17:11)
[2022-03-28] MEDS ORDERED: HYDR-4076 PO (17:11)
[2022-03-28] MEDS ORDERED: HYDR-4303 PO (17:11)
[2022-03-28] MEDS ORDERED: ACET-868 PO (17:11)
[2022-03-28] MEDS ORDERED: MAGN400O6 PO (17:11)
[2022-03-28] MEDS ORDERED: ASPI-1169 PO (17:11)
[2022-03-28] MEDS ORDERED: MICO71PO11 TP (17:11)
[2022-03-28] MEDS ORDERED: PANT40TA2 PO (17:11)
[2022-03-28] MEDS ORDERED: BENZ1LOZ58 MM (17:11)
[2022-03-28] MEDS ORDERED: SENN-261 PO (17:11)
[2022-03-28] MEDS ORDERED: NA P133E RC (17:11)
[2022-03-28] MEDS ORDERED: MELA1TAB47 PO (17:11)
[2022-03-28] MEDS ORDERED: APIX5TAB PO (17:11)
[2022-03-28] MEDS ORDERED: CALC500T13 PO (17:11)
[2022-03-28] MEDS ORDERED: ATOR40TA PO (17:11)
[2022-03-28] MEDS ORDERED: CYCL5TAB PO (17:11)
[2022-03-28] MEDS ORDERED: BISA10SU11 RC (17:11)
--- NOTE | 2022-03-28 17:52 | NUR ---
BLOOD DROW FOR REPEATE TROPONIN BY LAB TACK AT BED SIDE
--- NOTE | 2022-03-28 18:45 | NUR ---
INSERTED ANGO CATH G 22 ON RT HAND PT HEADE STICK
--- NOTE | 2022-03-28 19:30 | NUR ---
RECEIVED REPORT FROM ZA BILLINGSLEY. RECEIVED PT IN BED ASLEEP BUT AROUSABLE. CAME WITH CC OF CHEST PAIN. PATIENT IS ALREADY ATTACHED TO MONITOR. AAOX4. COMPLAINING OF BILATERAL LOWER EXTREMITIES PAIN. -SOB, -CP AT THE MOMENT. WITH IV CANNULA G22 ON RIGHT HAND. WITH OXYGEN INH AT 2LPM. VITALS CHECKED.
--- NOTE | 2022-03-28 19:30 | NUR ---
Note undone in EDM - 03/28/22 at 1950 by TERRY RECEIVED REPORT FROM ZA CISNEROS. PATIENT CAME FROM [facility] WITH INFECTED WOUND ON SACRAL AND HEELS. PATIENT CAME WITH TRACHE ATTACHED TO VENT. WITH IFC F16, WITH GTUBE FOR MEDS AND FEEDING. PATIENT IS AAOX0. VENT SETTING OF AC MODE, TV 400, FiO2 60%, RATE 12, PEEP 5. WITH PICC LINE ON LEFT UA, WITH IVC ON RIGHT AC G18. PATIENT IS ON LEVOPHED DRIP AT 0.8mcg/kg/min. PATIENT IS ATTACHED TO MONITOR. VITALS CHECKED.
--- NOTE | 2022-03-28 19:30 | NUR ---
COVID SWAB SEMNT TO LAB
--- NOTE | 2022-03-28 19:35 | NUR ---
HAND OFF KYM MENDENHALL
[2022-03-28] MEDS ORDERED: HYDROCODONE/APAP 5/325MG TABLET PO STA (21:15)
--- NOTE | 2022-03-28 21:15 | NUR ---
REPORT GIVEN TO ZA KELLEE
[2022-03-28] MEDS ORDERED: HYDROCODONE/APAP 5/325MG TABLET ONE (21:18)
--- NOTE | 2022-03-28 21:31 | NUR ---
TRANSFER TO [facility] VIA ACLS PROTOCOL
[2022-03-28 22:00] VITALS: BP 134/99
--- NOTE | 2022-03-28 22:00 | NUR ---
TRANSISTOR TESTER ADMITTING NOTES: RECEIVED PATIENT FROM ER AWAKE VIA GURNEY, TRANSFER TO [facility], NO COMPLAIN OF PAIN A DISCOMFORT AT THIS TIME, ON O2 INAHALTION AT 2LPM SATURATING WELL, PATIENT IS A/OX4 ABLE TO MAKE NEED KNOWN, ON TELE MONITOR- AFIB -108, NO SYMPTOMS WAS OBSERVED, SKIN ASSESSMENT DONE PICTURES AND DOCUMENTED, INVENTORY DONE AND SIGNED, IV LINE AT LEFT HAND #22SL, PATIENT KEPT CLEANAND DRY ALL NEEDS MET WILL CONTINUE TO MONITOR.
[2022-03-29] VITALS (9 sets, daily range): BP systolic 105–150; BP diastolic 57–95
[2022-03-29] MEDS ORDERED: MAG HYDROX/AL HYDROX/SIMETH 30 ML UDC PO PRN
[2022-03-29] MEDS ORDERED: ONDANSETRON HCL/PF 4 MG/2 ML VIAL IVP PRN
[2022-03-29] MEDS ORDERED: Z GUARD REMEDY 4 OZ OINT TP PRN
[2022-03-29] MEDS ORDERED: ZOLPIDEM TARTRATE 5 MG TABLET PO PRN
[2022-03-29] MEDS ORDERED: ACETAMINOPHEN 325 MG TABLET PO PRN
[2022-03-29] MEDS ORDERED: ALBUTEROL FS 2.5 MG/0.5 ML VIAL.NEB NEB PRN (01:00)
[2022-03-29] MEDS ORDERED: hydrALAZINE HCL 25 MG TABLET PO PRN (01:00)
[2022-03-29] MEDS ORDERED: diphenhydrAMINE HCL 25 MG CAPSULE PO PRN (01:00)
[2022-03-29] MEDS ORDERED: Medication Not On Formulary EA (Ipratropium/Albuterol Sulfate (Duoneb 2.5-0.5 Mg/3 Ml So IH PRN (01:00)
[2022-03-29] MEDS ORDERED: IPRATROPIUM NEB FS 0.5 MG/2.5 ML AMPUL.NEB IH PRN (01:00)
[2022-03-29] MEDS ORDERED: BISACODYL SUPP (10 MG) 10 MG/SUPP.RECT SUPP.RECT RC PRN (01:00)
[2022-03-29] MEDS ORDERED: CALCIUM CARBONATE 500 MG TAB.CHEW PO PRN (01:00)
[2022-03-29] MEDS ORDERED: SENNOSIDES 8.6 MG TABLET PO PRN (01:00)
[2022-03-29] MEDS ORDERED: MAGNESIUM HYDROXIDE 30 ML UDC PO PRN ×2 (01:00)
[2022-03-29] MEDS ORDERED: MENTHOL/CETYLPYRD (CEPACOL) 1 LOZ LOZENGE MM PRN (01:00)
[2022-03-29] MEDS ORDERED: NA PHOS,M-B/NA PHOS,DI-BA 1 EA ENEMA RC PRN (01:00)
[2022-03-29] MEDS: ACETAMINOPHEN 325 MG TABLET PO PRN ×2 (05:50→22:19)
--- NOTE | 2022-03-29 06:46 | NUR ---
ONCOLOGIST CLOSING NOTES; PATIENT SLEEP IN BED COMFORTABLY, BED IN LOW POSITION CALL LIGHTS WITHIN REACH, NO COMPLAIN OF PAIN AND DISCOMFORT AT THIS TIME, ON O2 INHALATION AT 2LPM SATURATING WELL, PATIENT IS A/OX4 ABLE TO MAKE NEEDS KNOWN, ON TELE MONITOR- AFIB-97 NO SYMPTOMS WAS OBSERVED, PATIENT KEPT CLEAN ANDDRY ALL NEEDS MET ENDORSE TO INCOMING SHIFT.
--- NOTE | 2022-03-29 07:15 | NUR ---
BISCUIT MACHINE OPERATOR OPENING NOTES; PATIENT RESTING IN N BED COMFORTABLY, EASILY TO AWAKE. A/oX4, ABLE TO MAKE NEEDS KNOWN. ON O2 NC 2L, NO SIGNS OF SOB NOTED. ON TELE MONITOR READING CONTROLLED AFIB, HR 96. SAFETY MEASURES IN PLACE WITH BED IN LOWEST LOCKED POSITION AND CALL LIGHT AND TRAY WITHIN REACH, NO COMPLAINTS OF PAIN AT THIS TIME. ALL NEEDS MET AT THIS TIME AND WILL CONTINUE TO MONITOR.
[2022-03-29] MEDS ORDERED: PANTOPRAZOLE 40 MG TABLET.DR PO SCH (07:30)
[2022-03-29] MEDS: ASPIRIN 81 MG TAB.CHEW PO SCH (08:16)
[2022-03-29] MEDS: DOCUSATE SODIUM 250 MG CAPSULE PO SCH (08:16)
[2022-03-29] MEDS: APIXABAN 5 MG TABLET PO SCH ×2 (08:17→16:02)
[2022-03-29] MEDS: PANTOPRAZOLE 40 MG TABLET.DR PO SCH (08:21)
[2022-03-29] MEDS: NYSTATIN CREAM 15 GM TUBE TP SCH ×2 (09:21→16:01)
[2022-03-29] MEDS: POLYVINYL ALCOHOL 15 ML BOTTLE EACHEYE PRN ×2 (09:21→09:25)
[2022-03-29] MEDS: POLYVINYL ALCOHOL 15 ML BOTTLE EACHEYE SCH ×3 (09:27→16:01)
[2022-03-29] MEDS: CYCLOBENZAPRINE 10 MG TABLET PO PRN ×2 (10:49→20:05)
[2022-03-29] MEDS: IV NS 0.9% 1,000 ML IV PRN (11:26)
[2022-03-29] MEDS: HYDROCODONE/APAP 5/325MG TABLET PO PRN ×2 (12:13→18:36)
[2022-03-29 12:34] LABS: BASOPHILS % (AUTO) 0.5 % (0.0-2.0); EOSINOPHILS % (AUTO) 1.1 % (0.0-6.0); HEMATOCRIT 46 % (33-45); HEMOGLOBIN 14.7 g/dL (11.5-14.8); LYMPHOCYTES # (AUTO) 1.9 K/uL (0.8-4.8); LYMPHOCYTES % (AUTO) 18.5 % (20.0-44.0); MEAN CORPUSCULAR HGB CONC 32 g/dl (31.0-36.0); MEAN CORPUSCULAR VOLUME 82 fL (82-100); MONOCYTES # (AUTO) 0.8 K/uL (0.1-1.30); MONOCYTES % (AUTO) 8.2 % (2.0-12.0); NEUTROPHILS # (AUTO) 7.3 K/uL (1.8-8.9); NEUTROPHILS % (AUTO) 71.7 % (43.0-81.0); PLATELET COUNT (AUTO) 177 K/uL (150-450); RED BLOOD CELL COUNT(AUTO) 5.55 MIL/uL (4.0-5.2); WHITE BLOOD COUNT (AUTO) 10.2 K/uL (4.3-11.0)
[2022-03-29 12:46] LABS: CALCIUM, SERUM 8.8 mg/dL (8.5-10.1); CREATININE 0.8 mg/dL (0.6-1.3); MAGNESIUM 2.3 mg/dL (1.8-2.4); PHOSPHORUS 2.9 mg/dL (2.5-4.9)
[2022-03-29 12:57] LABS: THYROID STIMULATING HORMONE 1.282 uIU/mL (0.358-3.74)
--- NOTE | 2022-03-29 18:51 | NUR ---
RN CLOSING NOTE PATIENT SLEEPING IN BED COMFORTABLY, A/0X4 AND ABLE TO MAKE NEEDS KNOWN. BED IN LOWEST LOCKED POSITION WITH TRAY AND CALL LIGHT WITHIN REACH. NO COMPLAINTS OF PAIN OR DISCOMFORT AT THIS TIME. ON O2 NASAL CANULA AT 2LPM, SATURATING WELL WITH NO SIGNS OF RESPIRATORY DISTRESS NOTED AT THIS TIME, ON TELE MONITOR- AFIB-89, NO CARDIAC PAIN VOCALIZED OR OBSERVED. PATIENT KEPT CLEAN AND DRY, ALL NEEDS MET AT THIS TIME. WILL ENDORSE AWA TO TRUCK CATERER NURSE.
--- NOTE | 2022-03-29 19:45 | NUR ---
RN OPENING NOTE PATIENT SLEEPING IN BED COMFORTABLY, A/0X4 AND ABLE TO MAKE NEEDS KNOWN. BED IN LOWEST LOCKED POSITION WITH TRAY AND CALL LIGHT WITHIN REACH. NO COMPLAINTS OF PAIN OR DISCOMFORT AT THIS TIME. ON O2 NASAL CANULA AT 2LPM, SATURATING WELL WITH NO SIGNS OF RESPIRATORY DISTRESS NOTED AT THIS TIME, ON TELE MONITOR-AFIB, NO CARDIAC PAIN VOCALIZED OR OBSERVED. PATIENT KEPT CLEAN AND DRY, ALL NEEDS MET AT THIS TIME.
--- NOTE | 2022-03-29 20:12 | NUR ---
RN NOTE PRN FLEXERIL GIVEN FOR MUSCLE SPASMS
[2022-03-29] MEDS: ATORVASTATIN 40 MG TABLET PO SCH (21:03)
--- NOTE | 2022-03-29 22:21 | NUR ---
rn note prn tylenol given for pain tolerated well.
--- NOTE | 2022-03-29 23:33 | NUR ---
rn note pt frank iv leaking. iv removed. new iv access established on the L wrist 22g .
[2022-03-30] VITALS: BP 125/79
--- NOTE | 2022-03-30 00:36 | NUR ---
RN NOTE PRN NORCO GIVEN TOLERATED WELL.
[2022-03-30] MEDS: HYDROCODONE/APAP 5/325MG TABLET PO PRN ×4 (00:40→21:15)
[2022-03-30 04:00] VITALS: BP 148/86
--- NOTE | 2022-03-30 06:34 | NUR ---
RN CLOSING NOTE PATIENT SLEEPING IN BED COMFORTABLY, A/0X4 AND ABLE TO MAKE NEEDS KNOWN. BED IN LOWEST LOCKED POSITION WITH TRAY AND CALL LIGHT WITHIN REACH. PT REPORTING PAIN 7/10 GENERALIZED PRN NORCO WILL BE GIVEN WHEN IT IS DUE. ON O2 NASAL CANULA AT 2LPM, SATURATING WELL WITH NO SIGNS OF RESPIRATORY DISTRESS NOTED AT THIS TIME, ON TELE MONITOR-AFIB, NO CARDIAC PAIN VOCALIZED OR OBSERVED. PATIENT KEPT CLEAN AND DRY, ALL NEEDS MET AT THIS TIME. WILL ENDORSE TO DAY SHIFT NURSE.
--- NOTE | 2022-03-30 06:51 | NUR ---
RN NOTE PRN NORCO GIVEN TOLERATED WELL.
--- NOTE | 2022-03-30 07:15 | NUR ---
RN OPENING NOTE PATIENT RESTING IN BED COMFORTABLY, A/0X4 AND ABLE TO MAKE NEEDS KNOWN. BED IN LOWEST LOCKED POSITION WITH TRAY AND CALL LIGHT WITHIN REACH. ON O2 NASAL CANULA AT 2LPM, SATURATING WELL WITH NO SIGNS OF RESPIRATORY DISTRESS NOTED AT THIS TIME, ON TELE MONITOR-AFIB, NO CARDIAC PAIN VOCALIZED OR OBSERVED. PATIENT CLEAN AND DRY, ALL NEEDS MET AT THIS TIME. WILL CONTINUE TO MONITOR
[2022-03-30 07:36] LABS: BASOPHILS % (AUTO) 0.3 % (0.0-2.0); EOSINOPHILS % (AUTO) 3.3 % (0.0-6.0); HEMATOCRIT 42 % (33-45); HEMOGLOBIN 13.3 g/dL (11.5-14.8); LYMPHOCYTES # (AUTO) 2.7 K/uL (0.8-4.8); LYMPHOCYTES % (AUTO) 34.9 % (20.0-44.0); MEAN CORPUSCULAR HGB CONC 32 g/dl (31.0-36.0); MEAN CORPUSCULAR VOLUME 83 fL (82-100); MONOCYTES # (AUTO) 0.9 K/uL (0.1-1.30); MONOCYTES % (AUTO) 12.4 % (2.0-12.0); NEUTROPHILS # (AUTO) 3.8 K/uL (1.8-8.9); NEUTROPHILS % (AUTO) 49.1 % (43.0-81.0); PLATELET COUNT (AUTO) 164 K/uL (150-450); RED BLOOD CELL COUNT(AUTO) 5.02 MIL/uL (4.0-5.2); WHITE BLOOD COUNT (AUTO) 7.7 K/uL (4.3-11.0)
--- NOTE | 2022-03-30 08:12 | NUR ---
WOUND CARE CONSULT: PT PRESENTS WITH RED RASH TO BREASTFOLDS, ABDOMINAL/GROIN FOLDS AND INNER BUTTOCKS, PRESENT ON ADMISSION. RECOMMENDATIONS MADE FOR SKIN CARE AND PROTECTION. DISCUSSED WITH NURSING STAFF. PT HAS SKIN CONDITION ON SCALP BEHIND EARS WHICH WILL BE DEFERRED TO PMD. PT IS INCONTINENT. MD IN AGREEMENT WITH PLAN OF CARE.
[2022-03-30] MEDS: ASPIRIN 81 MG TAB.CHEW PO SCH (08:27)
[2022-03-30] MEDS: PANTOPRAZOLE 40 MG TABLET.DR PO SCH (08:27)
[2022-03-30] MEDS: DOCUSATE SODIUM 250 MG CAPSULE PO SCH (08:27)
[2022-03-30] MEDS: APIXABAN 5 MG TABLET PO SCH ×2 (08:28→16:12)
[2022-03-30] MEDS: CYCLOBENZAPRINE 10 MG TABLET PO PRN ×2 (08:32→17:21)
[2022-03-30] MEDS: POLYVINYL ALCOHOL 15 ML BOTTLE EACHEYE SCH ×3 (08:33→16:10)
[2022-03-30 09:03] VITALS: BP 134/74
[2022-03-30 10:11] LABS: ALBUMIN 2.7 g/dL (3.4-5.0); BILIRUBIN,TOTAL 0.4 mg/dL (0.2-1.0); CREATININE 0.6 mg/dL (0.6-1.3); MAGNESIUM 2.2 mg/dL (1.8-2.4); PHOSPHORUS 2.6 mg/dL (2.5-4.9); POTASSIUM 3.9 mmol/L (3.5-5.1); TOTAL PROTEIN, SERUM 6.4 g/dL (6.4-8.2)
[2022-03-30] MEDS: IV NS 0.9% 1,000 ML IV PRN (14:50)
[2022-03-30 16:18] VITALS: BP 119/79
--- NOTE | 2022-03-30 18:41 | NUR ---
BIOPHARMACEUTICAL REP CLOSING NOTE PT AWAKE IN BED. A/O X4 AND ABLE TO MAKE NEEDS KNOWN. PT STABLE ON ROOM AIR. NO SOB OR S/S OF RESPIRATORY DISTRESS. BREATHING EVEN AND UNLABORED. OFF OF EXTERNAL CHEMICAL DEPENDENCY NURSE, BUT NO VOCALIZATION OF CARDIAC PAIN OR DISTRESS. IV ACCESS LAC 20G, INTACT AND PATENT, RUNNING NS @ 75 ML/HR. KEPT CLEAN AND DRY. ALL DUE MEDS GIVEN ORDERED. SAFETY PRECAUTIONS IN PLACE AT ALL TIMES. BED IN LOWEST LOCKED POSITION, HOB ELEVATED, SIDE RAILS UP X2, AND CALL LIGHT AND TABLE WITHIN REACH. ALL NEEDS MET AT THIS TIME AND WILL ENDORSE TO ONCOMING NURSE FOR AWA
--- NOTE | 2022-03-30 19:45 | NUR ---
RN NOTE PT S IV LINE LEAKING IV TAKEN OUT CATHETER IN TACT. NEW IV SITE R HAND 22 G.
[2022-03-30 20:00] VITALS: BP 90/60
[2022-03-30] MEDS: ATORVASTATIN 40 MG TABLET PO SCH (21:15)
--- NOTE | 2022-03-30 21:15 | NUR ---
RN NOTE PRN NORCO GIVEN TOLERATED WELL.
--- NOTE | 2022-03-30 23:28 | NUR ---
rn note prn Ambien given tolerated well.
[2022-03-31] MEDS: HYDROCODONE/APAP 5/325MG TABLET PO PRN ×2 (03:24→09:29)
--- NOTE | 2022-03-31 03:38 | NUR ---
rn note prn norco given tolerated well.
[2022-03-31] MEDS: CYCLOBENZAPRINE 10 MG TABLET PO PRN ×2 (05:57→11:57)
[2022-03-31 06:16] LABS: BASOPHILS % (AUTO) 0.4 % (0.0-2.0); EOSINOPHILS % (AUTO) 2.8 % (0.0-6.0); HEMATOCRIT 40 % (33-45); HEMOGLOBIN 12.8 g/dL (11.5-14.8); LYMPHOCYTES # (AUTO) 2.4 K/uL (0.8-4.8); LYMPHOCYTES % (AUTO) 28.1 % (20.0-44.0); MEAN CORPUSCULAR HGB CONC 32 g/dl (31.0-36.0); MEAN CORPUSCULAR VOLUME 83 fL (82-100); NEUTROPHILS # (AUTO) 4.8 K/uL (1.8-8.9); NEUTROPHILS % (AUTO) 56.7 % (43.0-81.0); PLATELET COUNT (AUTO) 161 K/uL (150-450); WHITE BLOOD COUNT (AUTO) 8.4 K/uL (4.3-11.0)
[2022-03-31 07:04] LABS: ALBUMIN 2.8 g/dL (3.4-5.0); BILIRUBIN,TOTAL 0.4 mg/dL (0.2-1.0); CALCIUM, SERUM 8.1 mg/dL (8.5-10.1); CREATININE 0.7 mg/dL (0.6-1.3); MAGNESIUM 2.1 mg/dL (1.8-2.4); PHOSPHORUS 3.4 mg/dL (2.5-4.9); POTASSIUM 3.6 mmol/L (3.5-5.1); TOTAL PROTEIN, SERUM 6.4 g/dL (6.4-8.2)
--- NOTE | 2022-03-31 07:39 | NUR ---
RN OPENING NOTES: RECEIVED PT ASLEEP, EASILY ROUSED, A/O X4, AND ABLE TO MAKE NEEDS KNOWN. PT STABLE ON 2L OF O2 VIA NC. NO SOB OR S/S OF RESPIRATORY DISTRESS. BREATHING EVEN AND UNLABORED. IV ACCESS LAC 20G, RUNNING NS @ 75 ML/HR. SAFETY PRECAUTIONS IN PLACE AT ALL TIMES. BED IN LOWEST LOCKED POSITION, HOB ELEVATED, SIDE RAILS UP X2, AND CALL LIGHT AND TABLE WITHIN REACH, WILL CONT WITH PLAN OF CARE DURING SHIFT. Addendum: 03/31/22 at 0743 by AD HARDEN RN CORRECTION: IV ACCESS AT R HAND #22 RUNNING NS @ 100ML/HR
[2022-03-31 08:00] VITALS: BP 125/77
[2022-03-31] MEDS: DOCUSATE SODIUM 250 MG CAPSULE PO SCH (08:11)
[2022-03-31] MEDS: PANTOPRAZOLE 40 MG TABLET.DR PO SCH (08:11)
[2022-03-31] MEDS: ASPIRIN 81 MG TAB.CHEW PO SCH (08:11)
[2022-03-31] MEDS: POLYVINYL ALCOHOL 15 ML BOTTLE EACHEYE SCH ×2 (08:14→12:01)
[2022-03-31] MEDS: APIXABAN 5 MG TABLET PO SCH (08:14)
--- NOTE | 2022-03-31 08:41 | NUR ---
ORTHOSTATIC BP laying down flat BP- 132/82, HR- 88 sitting up/high fowlers in bed (5 min) BP- 138/81 HR- 77
--- NOTE | 2022-03-31 14:30 | NUR ---
RN DC NOTES: PT STABLE FOR DC, VITALS WNL. NO S/S OF SOB OR DISTRESS ON RA, BREATHING EVEN AND UNLABORED, DENIED PAIN AT THIS TIME. BELONGINGS LIST, DC INSTRUCTIONS DISCUSSED WITH PT, DOCUMENTS SIGNED, PT VERBALIZED UNDERSTANDING TO EVERYTHING DISCUSSED. RN CALLED [facility] @ 1330 AND 1400 BUT UNABLE TO ENDORSE PT, LINOTYPE MACHINIST STAFF STATES THE ADMITTING NURSE IS AT [facility], GIVEN 3 WEST TEL# FOR ENDORSEMENT ONCE AVAILABLE, [place] STAFF AGREED. TRANSPORTATION [facility] # 260, RUN# 411, PT LEFT UNIT VIA GURNEY. 1510- RN CALLED [facility] TO ENDORSE PT, STAFF STATES ADMITTING RN IS NOT IN AND WILL GIVE UNIT A CALL ONCE THEY ARE BACK.
== END 2022-03-31 14:45 | DRG 392 ==
LOC: ER 14:47 → TELE 20:20 → MED 03-30 16:20
PROVIDERS: ADMIT Student in an Organized Health Care Education/Training Program
DX: K21.9 Gastro-esophageal reflux disease without esophagitis (principal); E87.1 Hypo-osmolality and hyponatremia; N39.0 Urinary tract infection, site not specified; E87.20 Acidosis, unspecified; I48.91 Unspecified atrial fibrillation; E86.0 Dehydration; Z20.822 Contact with and (suspected) exposure to COVID-19; E78.5 Hyperlipidemia, unspecified; G62.9 Polyneuropathy, unspecified; I10 Essential (primary) hypertension; I25.2 Old myocardial infarction; K46.9 Unspecified abdominal hernia without obstruction or gangrene; M85.80 Other specified disorders of bone density and structure, unspecified site; Z98.51 Tubal ligation status; Z98.890 Other specified postprocedural states; Z88.5 Allergy status to narcotic agent; Z88.0 Allergy status to penicillin; Z88.2 Allergy status to sulfonamides; Z88.1 Allergy status to other antibiotic agents; Z91.041 Radiographic dye allergy status; Z79.01 Long term (current) use of anticoagulants; Z86.73 Personal history of transient ischemic attack (TIA), and cerebral infarction without residual deficits; I25.10 Atherosclerotic heart disease of native coronary artery without angina pectoris; M81.0 Age-related osteoporosis without current pathological fracture; M19.90 Unspecified osteoarthritis, unspecified site; Z79.51 Long term (current) use of inhaled steroids; Z79.82 Long term (current) use of aspirin; Z79.899 Other long term (current) drug therapy; W01.0XXA Fall on same level from slipping, tripping and stumbling without subsequent striking against object, initial encounter; Y92.9 Unspecified place or not applicable; M54.6 Pain in thoracic spine; N63.20 Unspecified lump in the left breast, unspecified quadrant; E66.01 Morbid (severe) obesity due to excess calories; I95.1 Orthostatic hypotension; G89.29 Other chronic pain
CPT/HCPCS: 36415; 71045-TC; 80048-TC; 80053-TC; 80061-TC; 83735-TC; 84100-TC; 84443-TC; 84484-TC; 85025-TC; 87081-TC; 93307-TC; 93970-TC; 97110-TC; 97112-TC; 97530-TC; G0378; J2405; J7030